=== PATIENT | male | born 1935 | race Caucasian/White ===

== ENCOUNTER 2018-08-24 14:05 | Inpatient (IN) | payer OTHER ==
[~2018-08-24] VITALS: Ht 167.6 cm; Wt 80.7 kg
[~2018-08-24 14:05] MED LIST: ATOR-2 PO; CLOP75TA27 PO; FURO40TA4 PO; PANT40TA4 PO; VALS40TA2 PO
[2018-08-24 14:09] VITALS: Ht 167.6 cm; Wt 80.7 kg
[2018-08-24] MEDS ORDERED: ACETAMINOPHEN 325 MG TAB PO ONE (15:00)
[2018-08-24] MEDS ORDERED: PIPER-TAZO 3.375 GM IV (PMX) 100 ML IVPB STA (15:20)
[2018-08-24] MEDS ORDERED: VANCOMYCIN 1 GM (PMX) 250 ML IVPB STA (15:20)
[2018-08-24] MEDS ORDERED: SACU1TAB7 PO (15:26)
[2018-08-24] MEDS ORDERED: CLOP75TA19 PO (15:27)
[2018-08-24] MEDS ORDERED: ATOR-2 PO (15:27)
[2018-08-24] MEDS ORDERED: ONDANSETRON 4 MG INJ IV PRN ×2 (16:00→18:00)
[2018-08-24] MEDS ORDERED: ACETAMINOPHEN 325 MG TAB PO PRN (16:00)
--- NOTE | 2018-08-24 16:36 | ERD ---
ER Documentation Chief Complaint Chief Complaint rt foot swelling s/p twisted today ROS All systems reviewed and are negative except as per history of present illness. Medications Home Meds Reported Medications Atorvastatin* (Atorvastatin*) 80 Mg Tablet, 80 MG PO QHS, #30 TAB 08/24/18 Clopidogrel Bisulfate* (Clopidogrel Bisulfate*) 75 Mg Tablet, 75 MG PO DAILY, #30 TAB 08/24/18 Sacubitril/Valsartan (Entresto 49 mg-51 mg Tablet) 1 Each Tablet, 1 EACH PO BID, TAB 08/24/18 Discontinued Reported Medications Clopidogrel Bisulfate (Clopidogrel) 75 Mg Tablet, 75 MG PO DAILY, #30 TAB 02/11/16 Furosemide* (Furosemide*) 40 Mg Tablet, 40 MG PO DAILY, TAB 02/11/16 Atorvastatin* (Atorvastatin*) 80 Mg Tablet, 80 MG PO QHS, #30 TAB 02/11/16 Pantoprazole* (Pantoprazole*) 40 Mg Tablet.dr, 40 MG PO AC BREAKFAST, TAB 02/11/16 Valsartan* (Diovan*) 40 Mg Tablet, 40 MG PO DAILY, TAB 02/11/16 Allergies Allergies: Coded Allergies: No Known Allergies (Verified Allergy, Unknown, 08/24/18) PMhx/Soc Anesthesia Reaction: No Hx Neurological Disorder: No Hx Respiratory Disorders: No Hx Cardiac Disorders: Yes (HTN< CAD, MA STEMI) Hx Psychiatric Problems: No Hx Miscellaneous Medical Probl: No Hx Alcohol Use: No Hx Substance Use: No Hx Tobacco Use: No Smoking Status: Never smoker Physical Exam Vitals Vital Signs Date Temp Pulse Resp B/P (MAP) Pulse Ox O2 O2 Flow FiO2 Time Delivery Rate 08/24/18 98.1 66 24 149/79 98 Room Air 15:10 (102) 08/24/18 98.1 79 18 136/79 98 14:09 (98) Physical Exam Const: No acute distress Head: Atraumatic Eyes: Normal Conjunctiva ENT: Normal External Ears, Nose and Mouth. Neck: Full range of motion. No meningismus. Resp: Clear to auscultation bilaterally Cardio: Regular rate and rhythm, no murmurs Abd: Soft, non tender, non distended. Normal bowel sounds Skin: Redness and warmth to touch to the dorsal right foot Back: No midline or flank tenderness Ext: No cyanosis, or edema Neur: Awake and alert Psych: Normal Mood and Affect Result Diagram: 08/24/18 1512 08/24/18 1512 Results 24 hrs Laboratory Tests Test 08/24/18 15:12 08/24/18 15:35 White Blood Count 8.5 10^3/ul Red Blood Count 4.82 10^6/ul Hemoglobin 13.1 g/dl Hematocrit 41.3 % Mean Corpuscular Volume 85.7 fl Mean Corpuscular Hemoglobin 27.2 pg Mean Corpuscular Hemoglobin Concent 31.7 g/dl Red Cell Distribution Width 14.1 % Platelet Count 201 10^3/UL Mean Platelet Volume 9.8 fl Immature Granulocytes % 0.400 % Neutrophils % 78.1 % Lymphocytes % 10.3 % Monocytes % 9.3 % Eosinophils % 1.3 % Basophils % 0.6 % Nucleated Red Blood Cells % 0.0 /100WBC Immature Granulocytes # 0.030 10^3/ul Neutrophils # 6.7 10^3/ul Lymphocytes # 0.9 10^3/ul Monocytes # 0.8 10^3/ul Eosinophils # 0.1 10^3/ul Basophils # 0.1 10^3/ul Nucleated Red Blood Cells # 0.0 10^3/ul Sodium Level 140 mmol/L Potassium Level 3.9 mmol/L Chloride Level 104 mmol/L Carbon Dioxide Level 27 mmol/L Anion Gap 9 Blood Urea Nitrogen 18 mg/dl Creatinine 1.05 mg/dl Est Glomerular Filtrat Rate mL/min mL/min Glucose Level 146 mg/dl Calcium Level 9.2 mg/dl Troponin I 0.015 ng/ml POC Venous Lactate 1.3 mmol/L Current Medications Medications Dose Sig/Kenneth Start Time Status Last (Trade) Ordered Route PRN Stop Time Admin Dose Reason Admin 650 mg ONCE ONCE 08/24/18 DC 08/24/18 Acetaminophen PO 15:00 14:53 (Tylenol 08/24/18 15:01 Tab) Vancomycin 250 ml @ ONCE STAT 08/24/18 08/24/18 HCl 125 mls/hr IVPB 15:20 16:10 08/24/18 17:19 Piperacillin 100 ml @ ONCE STAT 08/24/18 DC 08/24/18 Sod/ 200 mls/hr IVPB 15:20 15:42 Tazobactam 08/24/18 15:49 Sod Ondansetron 4 mg ER BRIDGE 08/24/18 HCl (Zofran PRN IV 16:00 Inj) NAUSEA/VOMITI 08/25/18 15:59 NG 650 mg ER BRIDGE 08/24/18 Acetaminophen PRN PO 16:00 (Tylenol .MILD PAIN 08/25/18 15:59 Tab) 1-3 OR TEMP Procedures/MDM EKG read by me: Rate/Rhythm: Irregular rhythm at a normal rate Intervals: Normal Impression: Likely Mobitz type II second-degree heart block Chest x-ray read by radiology. X-ray of the right foot shows no fracture per radiology. Patient is a 83-year-old male who presents with near syncope and falls. The patient was found to have what looks like a possible type II second-degree heart block. The patient will need to be watched on the monitor and possibly seen by cardiology to determine if he requires pacemaker placement. Right foot appears to be cellulitic with redness and warmth to touch to the dorsum. There is no sign of fracture. Patient was given broad-spectrum antibiotics after cultures and lactic acid. I doubt sepsis. The patient will be admitted to the panel team. Departure Diagnosis: Primary Impression: Mobitz type 2 second degree heart block Additional Impressions: Cellulitis Site of cellulitis: extremity Site of cellulitis of extremity: lower extremity Laterality: right Qualified Codes: L03.115 - Cellulitis of right lower limb Near syncope Dizziness Condition: Serious PAT LAMB MD Aug 24, 2018 16:36
[2018-08-24] MEDS ORDERED: NACL 0.9% 3 ML SYG IV SCH (18:00)
--- NOTE | 2018-08-24 18:18 | HP ---
Date/Time of Note Date/Time of Note DATE: 08/24/18 TIME: 18:05 Assessment/Plan VTE Prophylaxis Pharmacological prophylaxis: NA/contraindicated Pharm contraindication: low risk/ambulating Lines/Catheters IV Catheter Type (from Nrsg): Saline Lock Assessment/Plan Assessment/Plan 83 yo man history of VT and CABG, presents with foot redness found to have 2nd degree AV block #AV block - 2nd degree AV block on EKG and tele - Asymptomatic. Patient denies chest pain/pressure/palpitations. - Had fall but denies cardiac symptoms prior. - Consult Dr. Rowley #Foot redness - May be early soft tissue infection. - Foot XR unremarkable. - Empiric vancomycin, likely discharge on PO clinda or Bactrim. #CAD #History of CABG - Continue plavix, statin, Entresto - Will send lipid panel and HgbA1C DVT: SCDs GI: None Result Diagram: 08/24/18 1512 08/24/18 1512 HPI/ROS Admit Date/Time Admit Date/Time 24 August 2018 Hx of Present Illness Mr. Hopper is an 83 yo Um[place]-speaking man with history of CAD s/p CABG in 2016 who presents with foot swelling and fall. He was in his usual state of health until this morning when he fell; he was at the [employer] when he stood up, twisted his LEFT leg, and fell. Denies dizziness, chest pain/pressure/palpitations. He did not strike his head. He also this morning noticed RIGHT foot redness and swelling so came to the emergency room. In the ED he was afebrile, vitals unremarkable. Slightly hypertensive to 149/79. Labs also unremarkable with mildly elevated troponin to 0.015. EKG was concerning for type 2 AV block. ROS Denies weight loss, night sweats, anorexia, fever, chills, headache, vision changes, photophobia, dysphagia, nausea, vomiting, abdominal pain, palpitations, chest pain/pressure, diarrhea, constipation, hematochezia, melena, dysuria, hematuria. PMH/Family/Social Past Medical History History of VT CHF COPD Medications Current Medications Ondansetron HCl (Zofran Inj) 4 mg ER BRIDGE PRN IV NAUSEA/VOMITING; Start 08/24/18 at 16:00; Stop 08/25/18 at 15:59 Acetaminophen (Tylenol Tab) 650 mg ER BRIDGE PRN PO .MILD PAIN 1-3 OR TEMP; Start 08/24/18 at 16:00; Stop 08/25/18 at 15:59 IV Flush (NS 3 ml) 3 ml PER PROTOCOL IV ; Start 08/24/18 at 18:00; Status UNV Ondansetron HCl (Zofran Inj) 4 mg Q6H PRN IV NAUSEA/VOMITING; Start 08/24/18 at 18:00; Status UNV Acetaminophen (Tylenol Tab) 650 mg Q6H PRN PO .PAIN 1-3 OR TEMP; Start 08/24/18 at 18:00; Status UNV Heparin Sodium (Porcine) (Heparin (5000 Units/1ml)) 5,000 unit Q8 SC ; Start 08/24/18 at 22:00; Status UNV Atorvastatin Calcium (Lipitor) 80 mg QHS PO ; Start 08/24/18 at 21:00; Status UNV Clopidogrel Bisulfate (plaVIX) 75 mg DAILY PO ; Start 08/25/18 at 09:00; Status UNV Sacubitril/ Valsartan (Entresto 49 Mg-51 Mg) 1 tab BID PO ; Start 08/24/18 at 21:00; Status UNV Coded Allergies: No Known Allergies (Verified Allergy, Unknown, 08/24/18) Past Surgical History CABG in 09/[address] Mc after VT Past Surgical Hx: coronary bypass surgery Family History Significant Family History: no pertinent family hx Social History Alcohol Use: none Smoking Status: Never smoker Drug Use: none Exam/Review of Systems Vital Signs Vitals Vital Signs Date Temp Pulse Resp B/P (MAP) Pulse Ox O2 O2 Flow FiO2 Time Delivery Rate 08/24/18 98.5 53 24 154/75 97 Room Air 17:10 (101) Exam Exam Gen: Friendly, well developed man comfortable appearing supine in bed. Eyes: PERRL, mild icterus HEENT: Moist mucous membranes, clear oropharynx Neck: No JVD. Supple, no lymphadenopathy Card: Regular rate and rhythm, no murmurs. Chest: Well healed sternotomy scar. Pulm: Clear to auscultation bilaterally Abd: Soft, nontender, nondistended. Normoactive bowel sounds. Ext: R distal foot warm, 2+ edema, erythema. No induration or fluctuance. FLORENCIA BORREGO MD Aug 24, 2018 18:17
[2018-08-24] MEDS ORDERED: VANCOMYCIN IV PER PHARMACY XX SCH (18:30)
[2018-08-24 19:53] VITALS: BMI 28.7
[2018-08-24 20:00] VITALS: PULSE 45
[2018-08-24] MEDS ORDERED: VANCOMYCIN 500 MG (PMX) 100 ML IVPB ONE (21:00)
[2018-08-24] MEDS ORDERED: VANCOMYCIN HCL 1.25 GM in SOD CHLORIDE 0.9% 250 ML IVPB SCH (21:00)
[2018-08-24] MEDS: ATORVASTATIN 80 MG TAB PO SCH (21:16)
[2018-08-24] MEDS: HEPARIN 5,000 UNIT/1 ML VIAL SC SCH (21:28)
[2018-08-24] MEDS: SACUBITRIL/VALSARTAN (49mg-51mg) TABLET PO SCH (22:12)
[2018-08-25] VITALS (9 sets, daily range): BP systolic 128–149; BP diastolic 65–93; PULSE 56–73; RESP 18–20
[2018-08-25] MEDS: HEPARIN 5,000 UNIT/1 ML VIAL SC SCH ×3 (06:41→21:58)
[2018-08-25] MEDS: SACUBITRIL/VALSARTAN (49mg-51mg) TABLET PO SCH ×2 (08:46→20:32)
[2018-08-25] MEDS ORDERED: CLOPIDOGREL 75 MG TAB PO SCH (09:00)
[2018-08-25] MEDS: ALBUTEROL/IPRATROPIUM (NEB) 3 ML AMP HHN PRN (10:31)
--- NOTE | 2018-08-25 11:19 | CONS ---
Assessment/Plan Assessment/Plan Hospital Course (Demo Recall) RLE edema history of CMP and CHF most recent echo read as 30-40% Markedly abnormal conduction with RBBB, LAFB and marked 1st degree AV block [place] vs blocked PACs 1) mild heart failure will start Lasix 2) check echo may meet criteria for ICD 3) Continue telemetry monitoring for higher degree of heart block. Low threshold for pacemaker in setting of advanced conduction disease 4) hold plavix in case needs device to be followed 08/[address] Daley Consultation Date/Type/Reason Admit Date/Time 24 August 2018 Type of Consult Cardiology Date/Time of Note DATE: 08/25/18 TIME: 11:09 Hx of Present Illness 83 year old gentleman apparently lost to follow up but previously seen by Dr. Daley. Presents with RLE swelling denies chest pain or shortness of breath noted to be intermittently bradycardic. denies syncope or light headedness Constitutional: No chills, No disoriented Respiratory: no complaints Cardiovascular: no complaints Past Medical History Home Meds Reported Medications Atorvastatin* (Atorvastatin*) 80 Mg Tablet, 80 MG PO QHS, #30 TAB 08/24/18 Clopidogrel Bisulfate* (Clopidogrel Bisulfate*) 75 Mg Tablet, 75 MG PO DAILY, #30 TAB 08/24/18 Sacubitril/Valsartan (Entresto 49 mg-51 mg Tablet) 1 Each Tablet, 1 EACH PO BID, TAB 08/24/18 Discontinued Reported Medications Clopidogrel Bisulfate (Clopidogrel) 75 Mg Tablet, 75 MG PO DAILY, #30 TAB 02/11/16 Furosemide* (Furosemide*) 40 Mg Tablet, 40 MG PO DAILY, TAB 02/11/16 Atorvastatin* (Atorvastatin*) 80 Mg Tablet, 80 MG PO QHS, #30 TAB 02/11/16 Pantoprazole* (Pantoprazole*) 40 Mg Tablet., 40 MG PO AC BREAKFAST, TAB 02/11/16 Valsartan* (Diovan*) 40 Mg Tablet, 40 MG PO DAILY, TAB 02/11/16 Medications Current Medications IV Flush (NS 3 ml) 3 ml PER PROTOCOL IV ; Start 08/24/18 at 18:00 Ondansetron HCl (Zofran Inj) 4 mg Q6H PRN IV NAUSEA/VOMITING; Start 08/24/18 at 18:00 Acetaminophen (Tylenol Tab) 650 mg Q6H PRN PO .PAIN 1-3 OR TEMP; Start 08/24/18 at 18:00 Heparin Sodium (Porcine) (Heparin (5000 Units/1ml)) 5,000 unit Q8 SC Last administered on 08/25/18at 06:41; Admin Dose 5,000 UNIT; Start 08/24/18 at 22:00 Atorvastatin Calcium (Lipitor) 80 mg QHS PO Last administered on 08/24/18at 21:16; Admin Dose 80 MG; Start 08/24/18 at 21:00 Clopidogrel Bisulfate (plaVIX) 75 mg DAILY PO Last administered on 08/25/18at 08:46; Admin Dose 75 MG; Start 08/25/18 at 09:00 Sacubitril/ Valsartan (Entresto 49 Mg-51 Mg) 1 tab BID PO Last administered on 08/25/18at 08:46; Admin Dose 1 TAB; Start 08/24/18 at 21:00 Vancomycin HCl (Vanco Iv Per Pharmacy) VANCOMYCIN PER PHARMACY PER PROTOCOL XX ; Start 08/24/18 at 18:30 Vancomycin HCl 1.25 gm/Sodium Chloride 250 ml @ 83.333 mls/ hr Q24H IVPB ; Start 08/25/18 at 21:00 Albuterol/ Ipratropium (Duoneb) 3 ml Q4H RESP THERAPY PRN HHN SHORTNESS OF BREATH Last administered on 08/25/18at 10:31; Admin Dose 3 ML; Start 08/25/18 at 09:30 Allergies: Coded Allergies: No Known Allergies (Verified Allergy, Unknown, 08/24/18) Past Surgical History Past Surgical Hx: coronary bypass surgery Social History Alcohol Use: none Smoking Status: Never smoker Drug Use: none Exam/Review of Systems Vital Signs Vitals Vital Signs Date Temp Pulse Resp B/P (MAP) Pulse Ox O2 O2 Flow FiO2 Time Delivery Rate 08/25/18 2 2.0 10:32 08/25/18 68 22 Nasal 10:32 Cannula 08/25/18 97.9 130/73 07:18 (92) Intake and Output 08/24/18 08/24/18 08/25/18 1515:00 23:00 07:00 IntakeIntake Total 920 ml BalanceBalance 920 ml Exam Constitutional: alert, oriented Respiratory: diminished breath sounds Cardiovascular: irregular rhythm; No regular rate and rhythm Extremities: edema (right foot edema with mild erythema) Labs Result Diagram: 08/25/18 0444 08/25/18 0444 Results 24hrs Laboratory Tests Test 08/24/18 15:12 08/24/18 15:35 08/24/18 22:09 08/25/18 00:29 White Blood Count 8.5 Red Blood Count 4.82 Hemoglobin 13.1 L Hematocrit 41.3 #L Mean Corpuscular 85.7 Volume Mean Corpuscular 27.2 L Hemoglobin Mean Corpuscular 31.7 L Hemoglobin Concent Red Cell 14.1 Distribution Width Platelet Count 201 Mean Platelet Volume 9.8 Immature 0.400 Granulocytes % Neutrophils % 78.1 H Lymphocytes % 10.3 L Monocytes % 9.3 Eosinophils % 1.3 Basophils % 0.6 Nucleated Red Blood 0.0 Cells % Immature 0.030 Granulocytes # Neutrophils # 6.7 Lymphocytes # 0.9 Monocytes # 0.8 Eosinophils # 0.1 Basophils # 0.1 Nucleated Red Blood 0.0 Cells # Sodium Level 140 Potassium Level 3.9 Chloride Level 104 Carbon Dioxide Level 27 Anion Gap 9 Blood Urea Nitrogen 18 Creatinine 1.05 Est Glomerular Filtrat Rate mL/min Glucose Level 146 Calcium Level 9.2 Troponin I 0.015 0.024 POC Venous Lactate 1.3 Lactic Acid Level 1.0 0.8 Creatine Kinase 110 Creatine Kinase 1.8 Index Creatinine Kinase MB 2.02 (Mass) Test 08/25/18 04:44 White Blood Count 6.9 Red Blood Count 4.55 L Hemoglobin 12.4 L Hematocrit 39.4 L Mean Corpuscular 86.6 Volume Mean Corpuscular 27.3 L Hemoglobin Mean Corpuscular 31.5 L Hemoglobin Concent Red Cell 14.2 Distribution Width Platelet Count 202 Mean Platelet Volume 10.3 Immature 0.100 Granulocytes % Neutrophils % 67.8 Lymphocytes % 16.0 Monocytes % 10.9 Eosinophils % 4.2 Basophils % 1.0 Nucleated Red Blood 0.0 Cells % Immature 0.010 Granulocytes # Neutrophils # 4.7 Lymphocytes # 1.1 Monocytes # 0.8 Eosinophils # 0.3 Basophils # 0.1 Nucleated Red Blood 0.0 Cells # Sodium Level 139 Potassium Level 3.9 Chloride Level 107 Carbon Dioxide Level 27 Anion Gap 5 Blood Urea Nitrogen 18 Creatinine 1.06 Est Glomerular Filtrat Rate mL/min Glucose Level 129 Hemoglobin A1c 6.9 H Calcium Level 9.1 Phosphorus Level 4.7 Magnesium Level 2.3 Total Bilirubin 0.9 Direct Bilirubin 0.00 Indirect Bilirubin 0.9 Aspartate Amino 24 Transf (AST/SGOT) Alanine 26 Aminotransferase (AL T/SGPT) Alkaline Phosphatase 70 Creatine Kinase 99 Creatine Kinase 2.1 Index Creatinine Kinase MB 2.09 (Mass) Troponin I 0.015 Total Protein 6.7 Albumin 3.6 Globulin 3.10 Albumin/Globulin 1.16 Ratio Triglycerides Level 53 Cholesterol Level 99 L LDL Cholesterol, 48 Calculated HDL Cholesterol 40 Cholesterol/HDL 2.4 Ratio Thyroid Stimulating 3.250 Hormone (TSH) Medications Medications Current Medications IV Flush (NS 3 ml) 3 ml PER PROTOCOL IV ; Start 08/24/18 at 18:00 Ondansetron HCl (Zofran Inj) 4 mg Q6H PRN IV NAUSEA/VOMITING; Start 08/24/18 at 18:00 Acetaminophen (Tylenol Tab) 650 mg Q6H PRN PO .PAIN 1-3 OR TEMP; Start 08/24/18 at 18:00 Heparin Sodium (Porcine) (Heparin (5000 Units/1ml)) 5,000 unit Q8 SC Last administered on 08/25/18at 06:41; Admin Dose 5,000 UNIT; Start 08/24/18 at 22:00 Atorvastatin Calcium (Lipitor) 80 mg QHS PO Last administered on 08/24/18at 21:16; Admin Dose 80 MG; Start 08/24/18 at 21:00 Clopidogrel Bisulfate (plaVIX) 75 mg DAILY PO Last administered on 08/25/18at 08:46; Admin Dose 75 MG; Start 08/25/18 at 09:00 Sacubitril/ Valsartan (Entresto 49 Mg-51 Mg) 1 tab BID PO Last administered on 08/25/18at 08:46; Admin Dose 1 TAB; Start 08/24/18 at 21:00 Vancomycin HCl (Vanco Iv Per Pharmacy) VANCOMYCIN PER PHARMACY PER PROTOCOL XX ; Start 08/24/18 at 18:30 Vancomycin HCl 1.25 gm/Sodium Chloride 250 ml @ 83.333 mls/ hr Q24H IVPB ; Start 08/25/18 at 21:00 Albuterol/ Ipratropium (Duoneb) 3 ml Q4H RESP THERAPY PRN HHN SHORTNESS OF BREATH Last administered on 08/25/18at 10:31; Admin Dose 3 ML; Start 08/25/18 at 09:30 SOLOMON ARGUELLES MD Aug 25, 2018 11:19
[2018-08-25] MEDS: FUROSEMIDE 40 MG INJ IV SCH (12:37)
--- NOTE | 2018-08-25 14:11 | PN ---
Date/Time of Note Date/Time of Note DATE: 08/25/18 TIME: 14:08 Assessment/Plan VTE Prophylaxis Risk score (from Nsg)>0 risk: 3 SCD applied (from Nsg): Yes Pharmacological prophylaxis: heparin Lines/Catheters IV Catheter Type (from Nrsg): Saline Lock Assessment/Plan Hospital Course Comfortable no distress + JVD RRR Mild perihperal edema with statis changes A/P: 83 yo male with systolic CHF, CAD who presents with acute CHF exacerbation and trifascicular block CHF: - Continue diuresis to euvolemia Trifascucular block: - Management per cardiology, ICD? PPM? CAD: - Hold plavix for possible device implantation - Atorvastatin Vancomycin for foot cellulitis Result Diagram: 08/25/1844308/25/184 Results 24hrs Laboratory Tests Test 08/24/18 15:12 08/24/18 15:35 08/24/18 22:09 08/25/18 00:29 White Blood Count 8.5 Red Blood Count 4.82 Hemoglobin 13.1 L Hematocrit 41.3 #L Mean Corpuscular 85.7 Volume Mean Corpuscular 27.2 L Hemoglobin Mean Corpuscular 31.7 L Hemoglobin Concent Red Cell 14.1 Distribution Width Platelet Count 201 Mean Platelet Volume 9.8 Immature 0.400 Granulocytes % Neutrophils % 78.1 H Lymphocytes % 10.3 L Monocytes % 9.3 Eosinophils % 1.3 Basophils % 0.6 Nucleated Red Blood 0.0 Cells % Immature 0.030 Granulocytes # Neutrophils # 6.7 Lymphocytes # 0.9 Monocytes # 0.8 Eosinophils # 0.1 Basophils # 0.1 Nucleated Red Blood 0.0 Cells # Sodium Level 140 Potassium Level 3.9 Chloride Level 104 Carbon Dioxide Level 27 Anion Gap 9 Blood Urea Nitrogen 18 Creatinine 1.05 Est Glomerular Filtrat Rate mL/min Glucose Level 146 Calcium Level 9.2 Troponin I 0.015 0.024 POC Venous Lactate 1.3 Lactic Acid Level 1.0 0.8 Creatine Kinase 110 Creatine Kinase 1.8 Index Creatinine Kinase MB 2.02 (Mass) Test 08/25/18 04:44 White Blood Count 6.9 Red Blood Count 4.55 L Hemoglobin 12.4 L Hematocrit 39.4 L Mean Corpuscular 86.6 Volume Mean Corpuscular 27.3 L Hemoglobin Mean Corpuscular 31.5 L Hemoglobin Concent Red Cell 14.2 Distribution Width Platelet Count 202 Mean Platelet Volume 10.3 Immature 0.100 Granulocytes % Neutrophils % 67.8 Lymphocytes % 16.0 Monocytes % 10.9 Eosinophils % 4.2 Basophils % 1.0 Nucleated Red Blood 0.0 Cells % Immature 0.010 Granulocytes # Neutrophils # 4.7 Lymphocytes # 1.1 Monocytes # 0.8 Eosinophils # 0.3 Basophils # 0.1 Nucleated Red Blood 0.0 Cells # Sodium Level 139 Potassium Level 3.9 Chloride Level 107 Carbon Dioxide Level 27 Anion Gap 5 Blood Urea Nitrogen 18 Creatinine 1.06 Est Glomerular Filtrat Rate mL/min Glucose Level 129 Hemoglobin A1c 6.9 H Calcium Level 9.1 Phosphorus Level 4.7 Magnesium Level 2.3 Total Bilirubin 0.9 Direct Bilirubin 0.00 Indirect Bilirubin 0.9 Aspartate Amino 24 Transf (AST/SGOT) Alanine 26 Aminotransferase (AL T/SGPT) Alkaline Phosphatase 70 Creatine Kinase 99 Creatine Kinase 2.1 Index Creatinine Kinase MB 2.09 (Mass) Troponin I 0.015 Total Protein 6.7 Albumin 3.6 Globulin 3.10 Albumin/Globulin 1.16 Ratio Triglycerides Level 53 Cholesterol Level 99 L LDL Cholesterol, 48 Calculated HDL Cholesterol 40 Cholesterol/HDL 2.4 Ratio Thyroid Stimulating 3.250 Hormone (TSH) Subjective 24 Hr Interval Summary Free Text/Dictation Started on diuretics for CHF Resting comfortably Exam/Review of Systems Exam Vitals Vital Signs Date Temp Pulse Resp B/P (MAP) Pulse Ox O2 O2 Flow FiO2 Time Delivery Rate 08/25/18 62 12:01 08/25/18 97.8 20 135/71 97 Nasal 11:14 (92) Cannula 08/25/18 2.0 10:32 Intake and Output 08/24/18 08/24/18 08/25/18 1515:00 23:00 07:00 IntakeIntake Total 920 ml BalanceBalance 920 ml Results Results 24hrs Laboratory Tests Test 08/24/18 15:12 08/24/18 15:35 08/24/18 22:09 08/25/18 00:29 White Blood Count 8.5 Red Blood Count 4.82 Hemoglobin 13.1 L Hematocrit 41.3 #L Mean Corpuscular 85.7 Volume Mean Corpuscular 27.2 L Hemoglobin Mean Corpuscular 31.7 L Hemoglobin Concent Red Cell 14.1 Distribution Width Platelet Count 201 Mean Platelet Volume 9.8 Immature 0.400 Granulocytes % Neutrophils % 78.1 H Lymphocytes % 10.3 L Monocytes % 9.3 Eosinophils % 1.3 Basophils % 0.6 Nucleated Red Blood 0.0 Cells % Immature 0.030 Granulocytes # Neutrophils # 6.7 Lymphocytes # 0.9 Monocytes # 0.8 Eosinophils # 0.1 Basophils # 0.1 Nucleated Red Blood 0.0 Cells # Sodium Level 140 Potassium Level 3.9 Chloride Level 104 Carbon Dioxide Level 27 Anion Gap 9 Blood Urea Nitrogen 18 Creatinine 1.05 Est Glomerular Filtrat Rate mL/min Glucose Level 146 Calcium Level 9.2 Troponin I 0.015 0.024 POC Venous Lactate 1.3 Lactic Acid Level 1.0 0.8 Creatine Kinase 110 Creatine Kinase 1.8 Index Creatinine Kinase MB 2.02 (Mass) Test 08/25/18 04:44 White Blood Count 6.9 Red Blood Count 4.55 L Hemoglobin 12.4 L Hematocrit 39.4 L Mean Corpuscular 86.6 Volume Mean Corpuscular 27.3 L Hemoglobin Mean Corpuscular 31.5 L Hemoglobin Concent Red Cell 14.2 Distribution Width Platelet Count 202 Mean Platelet Volume 10.3 Immature 0.100 Granulocytes % Neutrophils % 67.8 Lymphocytes % 16.0 Monocytes % 10.9 Eosinophils % 4.2 Basophils % 1.0 Nucleated Red Blood 0.0 Cells % Immature 0.010 Granulocytes # Neutrophils # 4.7 Lymphocytes # 1.1 Monocytes # 0.8 Eosinophils # 0.3 Basophils # 0.1 Nucleated Red Blood 0.0 Cells # Sodium Level 139 Potassium Level 3.9 Chloride Level 107 Carbon Dioxide Level 27 Anion Gap 5 Blood Urea Nitrogen 18 Creatinine 1.06 Est Glomerular Filtrat Rate mL/min Glucose Level 129 Hemoglobin A1c 6.9 H Calcium Level 9.1 Phosphorus Level 4.7 Magnesium Level 2.3 Total Bilirubin 0.9 Direct Bilirubin 0.00 Indirect Bilirubin 0.9 Aspartate Amino 24 Transf (AST/SGOT) Alanine 26 Aminotransferase (AL T/SGPT) Alkaline Phosphatase 70 Creatine Kinase 99 Creatine Kinase 2.1 Index Creatinine Kinase MB 2.09 (Mass) Troponin I 0.015 Total Protein 6.7 Albumin 3.6 Globulin 3.10 Albumin/Globulin 1.16 Ratio Triglycerides Level 53 Cholesterol Level 99 L LDL Cholesterol, 48 Calculated HDL Cholesterol 40 Cholesterol/HDL 2.4 Ratio Thyroid Stimulating 3.250 Hormone (TSH) Medications Medication Current Medications IV Flush (NS 3 ml) 3 ml PER PROTOCOL IV ; Start 08/24/18 at 18:00 Ondansetron HCl (Zofran Inj) 4 mg Q6H PRN IV NAUSEA/VOMITING; Start 08/24/18 at 18:00 Acetaminophen (Tylenol Tab) 650 mg Q6H PRN PO .PAIN 1-3 OR TEMP; Start 08/24/18 at 18:00 Heparin Sodium (Porcine) (Heparin (5000 Units/1ml)) 5,000 unit Q8 SC Last administered on 08/25/18at 06:41; Admin Dose 5,000 UNIT; Start 08/24/18 at 22:00 Atorvastatin Calcium (Lipitor) 80 mg QHS PO Last administered on 08/24/18at 21:16; Admin Dose 80 MG; Start 08/24/18 at 21:00 Sacubitril/ Valsartan (Entresto 49 Mg-51 Mg) 1 tab BID PO Last administered on 08/25/18at 08:46; Admin Dose 1 TAB; Start 08/24/18 at 21:00 Vancomycin HCl (Vanco Iv Per Pharmacy) VANCOMYCIN PER PHARMACY PER PROTOCOL XX ; Start 08/24/18 at 18:30 Vancomycin HCl 1.25 gm/Sodium Chloride 250 ml @ 83.333 mls/ hr Q24H IVPB ; Start 08/25/18 at 21:00 Albuterol/ Ipratropium (Duoneb) 3 ml Q4H RESP THERAPY PRN HHN SHORTNESS OF BREATH Last administered on 08/25/18at 10:31; Admin Dose 3 ML; Start 08/25/18 at 09:30 Furosemide (Lasix) 40 mg DAILY IV Last administered on 08/25/18at 12:37; Admin Dose 40 MG; Start 08/25/18 at 11:30 SHERI BRO MD Aug 25, 2018 14:11
[2018-08-25] MEDS: ATORVASTATIN 80 MG TAB PO SCH (20:32)
[2018-08-25] MEDS: VANCOMYCIN HCL 1.25 GM in SOD CHLORIDE 0.9% 250 ML IVPB SCH (20:32)
[2018-08-26] VITALS (11 sets, daily range): BP systolic 14–161; BP diastolic 69–87; PULSE 55–88; RESP 18–20
[2018-08-26] MEDS: ACETAMINOPHEN 325 MG TAB PO PRN (03:13)
[2018-08-26] MEDS: HEPARIN 5,000 UNIT/1 ML VIAL SC SCH ×3 (06:39→21:32)
[2018-08-26] MEDS: SACUBITRIL/VALSARTAN (49mg-51mg) TABLET PO SCH ×2 (09:06→20:19)
[2018-08-26] MEDS: FUROSEMIDE 40 MG INJ IV SCH (09:06)
--- NOTE | 2018-08-26 15:34 | PN ---
Date/Time of Note Date/Time of Note DATE: 08/26/18 TIME: 15:30 Assessment/Plan VTE Prophylaxis Risk score (from Nsg)>0 risk: 5 Pharmacological prophylaxis: NA/contraindicated Pharm contraindication: low risk/ambulating Lines/Catheters IV Catheter Type (from Nrsg): Saline Lock Assessment/Plan Hospital Course 83 yo male with systolic CHF, CAD who presents with acute CHF exacerbation and trifascicular block CHF: - Continue diuresis to euvolemia Trifascucular block: - Management per cardiology, patient may require a pacemaker the patient is not currently interested in having that done CAD: - Hold plavix for possible device implantation - Atorvastatin Foot cellulitis -Continue Vanco Result Diagram: 08/25/1844308/25/18443 Subjective 24 Hr Interval Summary Constitutional: no complaints Exam/Review of Systems Exam Vitals Vital Signs Date Temp Pulse Resp B/P (MAP) Pulse Ox O2 O2 Flow FiO2 Time Delivery Rate 08/26/18 98.3 77 20 124/77 100 15:17 (93) 08/26/18 Nasal 2.0 07:51 Cannula Intake and Output 08/25/18 08/25/18 08/26/18 1515:00 23:00 07:00 IntakeIntake Total 1310 ml 1050 ml OutputOutput Total 1250 ml 750 ml BalanceBalance 60 ml 300 ml Constitutional: alert, oriented Respiratory: clear to auscultation Cardiovascular: regular rate and rhythm Gastrointestinal: soft; No distended Musculoskeletal: nl extremities to inspection Medications Medication Current Medications IV Flush (NS 3 ml) 3 ml PER PROTOCOL IV ; Start 08/24/18 at 18:00 Ondansetron HCl (Zofran Inj) 4 mg Q6H PRN IV NAUSEA/VOMITING; Start 08/24/18 at 18:00 Acetaminophen (Tylenol Tab) 650 mg Q6H PRN PO .PAIN 1-3 OR TEMP Last administered on 08/26/18at 03:13; Admin Dose 650 MG; Start 08/24/18 at 18:00 Heparin Sodium (Porcine) (Heparin (5000 Units/1ml)) 5,000 unit Q8 SC Last administered on 08/26/18at 13:57; Admin Dose 5,000 UNIT; Start 08/24/18 at 22:00 Atorvastatin Calcium (Lipitor) 80 mg QHS PO Last administered on 08/25/18 20:32; Admin Dose 80 MG; Start 08/24/18 at 21:00 Sacubitril/ Valsartan (Entresto 49 Mg-51 Mg) 1 tab BID PO Last administered on 08/26/18 09:06; Admin Dose 1 TAB; Start 08/24/18 at 21:00 Vancomycin HCl (Vanco Iv Per Pharmacy) VANCOMYCIN PER PHARMACY PER PROTOCOL XX ; Start 08/24/18 at 18:30 Vancomycin HCl 1.25 gm/Sodium Chloride 250 ml @ 83.333 mls/ hr Q24H IVPB Last administered on 08/25/18 20:32; Admin Dose 83.333 MLS/HR; Start 08/25/18 at 21:00 Albuterol/ Ipratropium (Duoneb) 3 ml Q4H RESP THERAPY PRN HHN SHORTNESS OF BREATH Last administered on 08/25/18at 10:31; Admin Dose 3 ML; Start 08/25/18 at 09:30 Furosemide (Lasix) 40 mg DAILY IV Last administered on 08/26/18 09:06; Admin Dose 40 MG; Start 08/25/18 at 11:30 PHOEBE ANSARI Aug 26, 2018 15:34
--- NOTE | 2018-08-26 15:52 | RADRPT ---
Echocardiogram Report Patient Name: DWIGHT JONESPatient ID: [id number] : 1935 (83y 4m)Study Date: 08/25/2018 1:18:20 PM Gender: MAccession #: [id number] Tech: Zander Pham [facility] Location: 60 Ref.Physician: SOLOMON ARGUELLES Height(Cm): BSA: Weight(Kg): Quality: AdequateOrder Physician: SOLOMON ARGUELLES Account #: Procedures: Echocardiographic Report: Transthoracic echocardiogram with complete 2D, M-Mode, and doppler examination. Indications: Cardiomyopathy. Measurements: 2D/M Mode Doppler Measurement Value Normal Range Measurement Value Normal Range LVIDd 2D 5.2 [ 4.2 - 5.8 ] cm AV Peak Jh 1.4 [ 100.0 - 170.0 ] cm/sec LVIDs 2D 4.6 [ 2.5 - 4.0 ] cm AV Peak PG 8.0 [ 2.0 - 9.0 ] mmHg LVPWd 2D 1.0 [ 0.6 - 1.0 ] cm LVOT Peak Jh 0.9 [ 70.0 - 110.0 ] cm/sec IVSd 2D 1.0 [ 0.6 - 1.0 ] cm LVOT Peak PG 3.0 [ 2.0 - 6.0 ] mmHg AoR Diam 2D 3.5 [ 2.6 - 3.4 ] cm TR Peak Jh 2.2 [ 100.0 - 280.0 ] cm/sec EDV 2D 127.0 [ 62.0 - 150.0 ] ml TR Peak PG 19.0 mmHg ESV 2D 96.3 [ 21.0 - 61.0 ] ml RVSP 29.0 [ 10.0 - 36.0 ] mmHg EF 2D 24.2 [ 52.0 - 72.0 ] percent RA Pressure 10.0 mmHg LA Dimen 2D 3.6 [ 3.0 - 4.0 ] cm Findings: Left Ventricle: Normal left ventricular cavity size. Normal left ventricular wall thickness. Ejection fraction is visually estimated at 35-40 %. Abnormal Diastolic Function. These segments of the LV are hypokinetic mid anterior segment, apical anterior segment, anteroseptum mid segment and apex. Right Ventricle: Normal right ventricular size. Normal right ventricular systolic function. Left Atrium: The left atrium is normal in size. Right Atrium: The right atrium is normal in size. Mitral Valve: Normal appearance and function of the mitral valve with trace physiologic regurgitation. Aortic Valve: No significant aortic stenosis or insufficiency. Aortic cusps appear mildly calcified. Tricuspid Valve: Normal appearance of the tricuspid valve. The estimated Peak RVSP is 29 mmHg. There is trace tricuspid regurgitation. Pulmonic Valve: Pulmonic valve not well visualized. Pericardium: Normal pericardium with no significant pericardial effusion. Aorta: Normal aortic root. IVC: Normal size and normal respiratory collapse consistent with normal right atrial pressure. Conclusions: Normal left ventricular cavity size. Normal left ventricular wall thickness. Ejection fraction is visually estimated at 35-40 %. Abnormal Diastolic Function. These segments of the LV are hypokinetic mid anterior segment, apical anterior segment, anteroseptum mid segment and apex. The left atrium is normal in size. Normal appearance and function of the mitral valve with trace physiologic regurgitation. No significant aortic stenosis or insufficiency. Aortic cusps appear mildly calcified. Normal appearance of the tricuspid valve. The estimated Peak RVSP is 29 mmHg. There is trace tricuspid regurgitation. Electronically Signed By: Abdirizak Daley 2018-08-26 15:52:12 PDT
--- NOTE | 2018-08-26 16:55 | CONS ---
Consult Date/Type/Reason Admit Date/Time Aug 24, 2018 at 15:55 Initial Consult Date Type of Consultation: CV Date/Time of Note DATE: 08/26/18 TIME: 16:48 Subjective cardiology follow up progress note s: Discussed with the staff and telemetry was reviewed. Patient has remained in sinus rhythm but has had Mobitz 1 AV block with episode of event 2-1 AV block heart rate has gone as low as 30s. No chest pain or pressure. Breathing is about the same. Objective: General: no acute distress HEENT: NC/AT. pupils are equal. round. NECK: NO JVD. no stridor. CV: Bradycardic. systolic murmur; no gallop or rubs. PULM: no wheezing or rhonchi. GI: SOFT, NT, ND, no rebound or guarding Extremity: 1+ right lower extremity edema as well as erythema. no clubbing. neuro: awake and alert, OX3. Psych: calm and pleasant rectal: deferred Echocardiogram was personally reviewed which shows: Normal left ventricular cavity size. Normal left ventricular wall thickness. Ejection fraction is visually estimated at 35-40 %. Abnormal Diastolic Function. These segments of the LV are hypokinetic mid anterior segment, apical anterior segment, anteroseptum mid segment and apex. The left atrium is normal in size. Normal appearance and function of the mitral valve with trace physiologic regurgitation. No significant aortic stenosis or insufficiency. Aortic cusps appear mildly calcified. Normal appearance of the tricuspid valve. The estimated Peak RVSP is 29 mmHg. There is trace tricuspid regurgitation. Objective Vitals Vital Signs Date Temp Pulse Resp B/P (MAP) Pulse Ox O2 O2 Flow FiO2 Time Delivery Rate 08/26/18 55 16:01 08/26/18 98.3 20 124/77 100 15:17 (93) 08/26/18 Nasal 2.0 07:51 Cannula Intake and Output 08/25/18 08/25/18 08/26/18 1515:00 23:00 07:00 IntakeIntake Total 1310 ml 1050 ml OutputOutput Total 1250 ml 750 ml BalanceBalance 60 ml 300 ml Results/Medications Result Diagram: 08/25/18 0444 08/25/18 0444 Home Meds Reported Medications Atorvastatin* (Atorvastatin*) 80 Mg Tablet, 80 MG PO QHS, #30 TAB 6/15/19 Clopidogrel Bisulfate* (Clopidogrel Bisulfate*) 75 Mg Tablet, 75 MG PO DAILY, #30 TAB 08/24/18 Sacubitril/Valsartan (Entresto 49 mg-51 mg Tablet) 1 Each Tablet, 1 EACH PO BID, TAB 08/24/18 Discontinued Reported Medications Clopidogrel Bisulfate (Clopidogrel) 75 Mg Tablet, 75 MG PO DAILY, #30 TAB 02/11/16 Furosemide* (Furosemide*) 40 Mg Tablet, 40 MG PO DAILY, TAB 02/11/16 Atorvastatin* (Atorvastatin*) 80 Mg Tablet, 80 MG PO QHS, #30 TAB 02/11/16 Pantoprazole* (Pantoprazole*) 40 Mg Tablet.dr, 40 MG PO AC BREAKFAST, TAB 02/11/16 Valsartan* (Diovan*) 40 Mg Tablet, 40 MG PO DAILY, TAB 02/11/16 Medications Current Medications IV Flush (NS 3 ml) 3 ml PER PROTOCOL IV ; Start 08/24/18 at 18:00 Ondansetron HCl (Zofran Inj) 4 mg Q6H PRN IV NAUSEA/VOMITING; Start 08/24/18 at 18:00 Acetaminophen (Tylenol Tab) 650 mg Q6H PRN PO .PAIN 1-3 OR TEMP Last administered on 08/26/18at 03:13; Admin Dose 650 MG; Start 08/24/18 at 18:00 Heparin Sodium (Porcine) (Heparin (5000 Units/1ml)) 5,000 unit Q8 SC Last administered on 08/26/18at 13:57; Admin Dose 5,000 UNIT; Start 08/24/18 at 22:00 Atorvastatin Calcium (Lipitor) 80 mg QHS PO Last administered on 08/25/18at 20:32; Admin Dose 80 MG; Start 08/24/18 at 21:00 Sacubitril/ Valsartan (Entresto 49 Mg-51 Mg) 1 tab BID PO Last administered on 08/26/18at 09:06; Admin Dose 1 TAB; Start 08/24/18 at 21:00 Vancomycin HCl (Vanco Iv Per Pharmacy) VANCOMYCIN PER PHARMACY PER PROTOCOL XX ; Start 08/24/18 at 18:30 Vancomycin HCl 1.25 gm/Sodium Chloride 250 ml @ 83.333 mls/ hr Q24H IVPB Last administered on 08/25/18at 20:32; Admin Dose 83.333 MLS/HR; Start 08/25/18 at 21:00 Albuterol/ Ipratropium (Duoneb) 3 ml Q4H RESP THERAPY PRN HHN SHORTNESS OF BREATH Last administered on 08/25/18at 10:31; Admin Dose 3 ML; Start 08/25/18 at 09:30 Furosemide (Lasix) 40 mg DAILY IV Last administered on 08/26/18at 09:06; Admin Dose 40 MG; Start 08/25/18 at 11:30 Assessment/Plan Hospital Course (Demo Recall) Congestive heart failure acute on chronic secondary systolic heart failure worsened by his marked bradycardia AV block with Mobitz 1 AV block and prolonged MS interval/first-degree AV block as well as intermittent 2-1 AV block Severe ischemic cardiomyopathy History of RI History of PCI history of coronary bypass graft Dyslipidemia Diabetes Abnormal EKG due to above Extremity edema possible gout rec: Continue with aspirin Continue with Entresto Unable to give any beta-bonilla at this point given his marked AV block and bradycardia Continue with statin Lasix to be continued as well We will check a chest x-ray and BNP I will start the patient on colchicine for possible gout. Antibiotic has been initiated by internal medicine. For possible cellulitis Patient has severe LV dysfunction ejection fraction has been between 30 to 35% mostly. He meets the ICD criteria for primary prevention of sudden cardiac d eath. He also has marked bradycardia and AV block and 2-1 AV block and would benefit from a pacing as well given the fact that he has been markedly bradycardic and which has been mostly contributing to his heart failure as well. He is also unable to get beta-bonilla given his severe LV dysfunction. Patient would best benefit from a by V ICD placement. d/w daughter who will talk with other family members Thank you for his referral we will continue to follow along with you. LAURA SWEET MD [facility] LAURA SWEET MD Aug 26, 2018 16:55
[2018-08-26] MEDS: COLCHICINE 0.6 MG TAB PO SCH (20:19)
[2018-08-26] MEDS: ATORVASTATIN 80 MG TAB PO SCH (20:19)
[2018-08-26] MEDS: VANCOMYCIN HCL 1.25 GM in SOD CHLORIDE 0.9% 250 ML IVPB SCH (20:19)
[2018-08-27] VITALS (11 sets, daily range): BP systolic 89–138; BP diastolic 54–97; PULSE 53–96; RESP 17–20
[2018-08-27] MEDS: ACETAMINOPHEN 325 MG TAB PO PRN (05:47)
[2018-08-27] MEDS: HEPARIN 5,000 UNIT/1 ML VIAL SC SCH ×3 (06:06→21:30)
[2018-08-27] MEDS: COLCHICINE 0.6 MG TAB PO SCH ×2 (08:21→20:24)
[2018-08-27] MEDS: FUROSEMIDE 40 MG INJ IV SCH (08:22)
[2018-08-27] MEDS: SACUBITRIL/VALSARTAN (49mg-51mg) TABLET PO SCH ×2 (08:22→20:24)
[2018-08-27] MEDS ORDERED: POTASSIUM CHLORIDE (SR) 20 MEQ TAB PO STA (08:35)
--- NOTE | 2018-08-27 08:38 | CONS ---
Consult Date/Type/Reason Admit Date/Time Aug 24, 2018 at 15:55 Initial Consult Date Type of Consultation: CV Date/Time of Note DATE: 08/27/18 TIME: 08:33 Subjective cardiology follow up progress note s: Discussed with the staff and telemetry was reviewed. Patient has remained in sinus rhythm but has had Mobitz 1 AV block No chest pain or pressure. Breathing is about the same. d/w family pt has agreed to BIV/ICD NOW less LE edema and pain Objective: General: no acute distress HEENT: NC/AT. pupils are equal. round. NECK: NO JVD. no stridor. CV: Bradycardic. systolic murmur; no gallop or rubs. PULM: no wheezing or rhonchi. GI: SOFT, NT, ND, no rebound or guarding Extremity: 1+ right lower extremity edema as well as erythema. no clubbing. neuro: awake and alert, OX3. Psych: calm and pleasant rectal: deferred Echocardiogram was personally reviewed which shows: Normal left ventricular cavity size. Normal left ventricular wall thickness. Ejection fraction is visually estimated at 35-40 %. Abnormal Diastolic Function. These segments of the LV are hypokinetic mid anterior segment, apical anterior segment, anteroseptum mid segment and apex. The left atrium is normal in size. Normal appearance and function of the mitral valve with trace physiologic regurgitation. No significant aortic stenosis or insufficiency. Aortic cusps appear mildly calcified. Normal appearance of the tricuspid valve. The estimated Peak RVSP is 29 mmHg. There is trace tricuspid regurgitation. Objective Vitals Vital Signs Date Temp Pulse Resp B/P (MAP) Pulse Ox O2 O2 Flow FiO2 Time Delivery Rate 08/27/18 76 08:08 08/27/18 Nasal 2.0 07:19 Cannula 08/27/18 97.6 20 109/59 97 07:07 (76) Intake and Output 08/26/18 08/26/18 08/27/18 1515:00 23:00 07:00 IntakeIntake Total 1150 ml 730 ml OutputOutput Total 950 ml 500 ml BalanceBalance 200 ml 230 ml Results/Medications Result Diagram: 08/27/18 0508/27/18 0522 Results 24 hrs Laboratory Tests Test 08/27/18 05:22 White Blood Count 7.7 Red Blood Count 5.07 Hemoglobin 13.7 L Hematocrit 43.2 Mean Corpuscular Volume 85.2 Mean Corpuscular Hemoglobin 27.0 L Mean Corpuscular Hemoglobin Concent 31.7 L Red Cell Distribution Width 14.0 Platelet Count 250 # Mean Platelet Volume 10.1 Immature Granulocytes % 0.400 Neutrophils % 68.0 Lymphocytes % 18.8 Monocytes % 8.6 Eosinophils % 3.4 Basophils % 0.8 Nucleated Red Blood Cells % 0.0 Immature Granulocytes # 0.030 Neutrophils # 5.2 Lymphocytes # 1.4 Monocytes # 0.7 Eosinophils # 0.3 Basophils # 0.1 Nucleated Red Blood Cells # 0.0 Prothrombin Time 14.1 Prothrombin Time Ratio 1.1 INR International Normalized Ratio 1.08 Sodium Level 138 Potassium Level 3.5 Chloride Level 102 Carbon Dioxide Level 27 Anion Gap 9 Blood Urea Nitrogen 28 H Creatinine 1.18 Est Glomerular Filtrat Rate mL/min Glucose Level 145 Calcium Level 9.0 Magnesium Level 2.3 Total Bilirubin 1.0 Direct Bilirubin 0.00 Indirect Bilirubin 1.0 Aspartate Amino Transf (AST/SGOT) 26 Alanine Aminotransferase (ALT/SGPT) 31 Alkaline Phosphatase 82 B-Type Natriuretic Peptide 1190 H Total Protein 7.0 Albumin 3.9 Globulin 3.10 Albumin/Globulin Ratio 1.25 Home Meds Reported Medications Atorvastatin* (Atorvastatin*) 80 Mg Tablet, 80 MG PO QHS, #30 TAB 08/24/18 Clopidogrel Bisulfate* (Clopidogrel Bisulfate*) 75 Mg Tablet, 75 MG PO DAILY, #30 TAB 08/24/18 Sacubitril/Valsartan (Entresto 49 mg-51 mg Tablet) 1 Each Tablet, 1 EACH PO BID, TAB 08/24/18 Discontinued Reported Medications Clopidogrel Bisulfate (Clopidogrel) 75 Mg Tablet, 75 MG PO DAILY, #30 TAB 02/11/16 Furosemide* (Furosemide*) 40 Mg Tablet, 40 MG PO DAILY, TAB 02/11/16 Atorvastatin* (Atorvastatin*) 80 Mg Tablet, 80 MG PO QHS, #30 TAB 02/11/16 Pantoprazole* (Pantoprazole*) 40 Mg Tablet.dr, 40 MG PO AC BREAKFAST, TAB 02/11/16 Valsartan* (Diovan*) 40 Mg Tablet, 40 MG PO DAILY, TAB 02/11/16 Medications Current Medications IV Flush (NS 3 ml) 3 ml PER PROTOCOL IV ; Start 08/24/18 at 18:00 Ondansetron HCl (Zofran Inj) 4 mg Q6H PRN IV NAUSEA/VOMITING; Start 08/24/18 at 18:00 Acetaminophen (Tylenol Tab) 650 mg Q6H PRN PO .PAIN 1-3 OR TEMP Last admini stered on 08/27/18at 05:47; Admin Dose 650 MG; Start 08/24/18 at 18:00 Heparin Sodium (Porcine) (Heparin (5000 Units/1ml)) 5,000 unit Q8 SC Last administered on 08/27/18 06:06; Admin Dose 5,000 UNIT; Start 08/24/18 at 22:00 Atorvastatin Calcium (Lipitor) 80 mg QHS PO Last administered on 08/26/18 20:19; Admin Dose 80 MG; Start 08/24/18 at 21:00 Sacubitril/ Valsartan (Entresto 49 Mg-51 Mg) 1 tab BID PO Last administered on 08/27/18 08:22; Admin Dose 1 TAB; Start 08/24/18 at 21:00 Vancomycin HCl (Vanco Iv Per Pharmacy) VANCOMYCIN PER PHARMACY PER PROTOCOL XX ; Start 08/24/18 at 18:30 Vancomycin HCl 1.25 gm/Sodium Chloride 250 ml @ 83.333 mls/ hr Q24H IVPB Last administered on 08/26/18 20:19; Admin Dose 83.333 MLS/HR; Start 08/25/18 at 21:00 Albuterol/ Ipratropium (Duoneb) 3 ml Q4H RESP THERAPY PRN HHN SHORTNESS OF BREATH Last administered on 08/25/18at 10:31; Admin Dose 3 ML; Start 08/25/18 at 09:30 Furosemide (Lasix) 40 mg DAILY IV Last administered on 08/27/18 08:22; Admin D ose 40 MG; Start 08/25/18 at 11:30 Colchicine (Colchicine) 0.6 mg BID PO Last administered on 08/27/18 08:21; Admin Dose 0.6 MG; Start 08/26/18 at 21:00 Miscellaneous Information (*Rx Drug Level Order Reminder*) VANCO TROUGH @ 2,000 ON... 1999 ONCE XX ; Start 08/27/18 at 20:00; Stop 08/27/18 at 20:01 Assessment/Plan Hospital Course (Demo Recall) Congestive heart failure acute on chronic secondary systolic heart failure worsened by his marked bradycardia AV block with Mobitz 1 AV block and prolonged AK interval/first-degree AV block as well as intermittent 2-1 AV block Severe ischemic cardiomyopathy History of MS History of PCI history of coronary bypass graft Dyslipidemia Diabetes Abnormal EKG due to above Extremity edema possible gout rec: Continue with aspirin Continue with Entresto Unable to give any beta-bonilla at this point given his marked AV block and bradycardia Continue with statin Lasix to be continued as well We will check a chest x-ray and BNP I will start the patient on colchicine for possible gout. Antibiotic has been initiated by internal medicine. For possible cellulitis Patient has severe LV dysfunction ejection fraction has been between 30 to 35% mostly. He meets the ICD criteria for primary prevention of sudden cardiac . He also has marked bradycardia and AV block and 2-1 AV block and would benefit from a pacing as well given the fact that he has been markedly bradycardic and which has been mostly contributing to his heart failure as well. He is also unable to get beta-bonilla given his severe LV dysfunction. Patient would best benefit from a by V ICD placement. d/w daughter pt has consented to the procedure now. Explained to the internal procedure discussed with the patient in detail including risk of infection vascular complication bleeding complication pneumothorax hemothorax MS arrhythmia etc. Patient consented to procedure. Patient has been scheduled for tomorrow morning unless the [employer] will not be ready Thank you for his referral we will continue to follow along with you. LAURA SWEET MD [facility] LAURA SWEET MD Aug 27, 2018 08:38
--- NOTE | 2018-08-27 16:53 | PN ---
Date/Time of Note Date/Time of Note DATE: 08/27/18 TIME: 16:49 Assessment/Plan VTE Prophylaxis Risk score (from Nsg)>0 risk: 5 Pharmacological prophylaxis: NA/contraindicated Pharm contraindication: surgical contra Lines/Catheters IV Catheter Type (from Nrsg): Saline Lock Assessment/Plan Hospital Course 83 yo male with systolic CHF, CAD who presents with acute CHF exacerbation and trifascicular block CHF: - Continue diuresis to euvolemia -Echo shows an EF of 35%, patient would benefit from ICD per cardiology Trifascucular block: - Management per cardiology, patient has an indication for pacemaker placement, plan is for placement today CAD: - Hold plavix for possible device implantation - Atorvastatin Gout -Uric acid is elevated -Continue colchicine -DC Vanco DC planning: Plan is for ICD/pacemaker placement today Result Diagram: 08/27/1852108/27/1822 Results 24hrs Laboratory Tests Test 08/27/18 05:22 White Blood Count 7.7 Red Blood Count 5.07 Hemoglobin 13.7 L Hematocrit 43.2 Mean Corpuscular Volume 85.2 Mean Corpuscular Hemoglobin 27.0 L Mean Corpuscular Hemoglobin Concent 31.7 L Red Cell Distribution Width 14.0 Platelet Count 250 # Mean Platelet Volume 10.1 Immature Granulocytes % 0.400 Neutrophils % 68.0 Lymphocytes % 18.8 Monocytes % 8.6 Eosinophils % 3.4 Basophils % 0.8 Nucleated Red Blood Cells % 0.0 Immature Granulocytes # 0.030 Neutrophils # 5.2 Lymphocytes # 1.4 Monocytes # 0.7 Eosinophils # 0.3 Basophils # 0.1 Nucleated Red Blood Cells # 0.0 Prothrombin Time 14.1 Prothrombin Time Ratio 1.1 INR International Normalized Ratio 1.08 Sodium Level 138 Potassium Level 3.5 Chloride Level 102 Carbon Dioxide Level 27 Anion Gap 9 Blood Urea Nitrogen 28 H Creatinine 1.18 Est Glomerular Filtrat Rate mL/min Glucose Level 145 Uric Acid 8.2 H Calcium Level 9.0 Magnesium Level 2.3 Total Bilirubin 1.0 Direct Bilirubin 0.00 Indirect Bilirubin 1.0 Aspartate Amino Transf (AST/SGOT) 26 Alanine Aminotransferase (ALT/SGPT) 31 Alkaline Phosphatase 82 B-Type Natriuretic Peptide 1190 H Total Protein 7.0 Albumin 3.9 Globulin 3.10 Albumin/Globulin Ratio 1.25 Subjective 24 Hr Interval Summary Constitutional: no complaints Exam/Review of Systems Exam Vitals Vital Signs Date Temp Pulse Resp B/P (MAP) Pulse Ox O2 O2 Flow FiO2 Time Delivery Rate 08/27/18 53 16:12 08/27/18 97.5 20 117/63 99 14:59 (81) 08/27/18 Nasal 2.0 07:19 Cannula Intake and Output 08/26/18 08/26/18 08/27/18 1515:00 23:00 07:00 IntakeIntake Total 1150 ml 730 ml OutputOutput Total 950 ml 500 ml BalanceBalance 200 ml 230 ml Constitutional: alert, oriented Respiratory: clear to auscultation Cardiovascular: regular rate and rhythm Gastrointestinal: soft; No distended Musculoskeletal: nl extremities to inspection Results Results 24hrs Laboratory Tests Test 08/27/18 05:22 White Blood Count 7.7 Red Blood Count 5.07 Hemoglobin 13.7 L Hematocrit 43.2 Mean Corpuscular Volume 85.2 Mean Corpuscular Hemoglobin 27.0 L Mean Corpuscular Hemoglobin Concent 31.7 L Red Cell Distribution Width 14.0 Platelet Count 250 # Mean Platelet Volume 10.1 Immature Granulocytes % 0.400 Neutrophils % 68.0 Lymphocytes % 18.8 Monocytes % 8.6 Eosinophils % 3.4 Basophils % 0.8 Nucleated Red Blood Cells % 0.0 Immature Granulocytes # 0.030 Neutrophils # 5.2 Lymphocytes # 1.4 Monocytes # 0.7 Eosinophils # 0.3 Basophils # 0.1 Nucleated Red Blood Cells # 0.0 Prothrombin Time 14.1 Prothrombin Time Ratio 1.1 INR International Normalized Ratio 1.08 Sodium Level 138 Potassium Level 3.5 Chloride Level 102 Carbon Dioxide Level 27 Anion Gap 9 Blood Urea Nitrogen 28 H Creatinine 1.18 Est Glomerular Filtrat Rate mL/min Glucose Level 145 Uric Acid 8.2 H Calcium Level 9.0 Magnesium Level 2.3 Total Bilirubin 1.0 Direct Bilirubin 0.00 Indirect Bilirubin 1.0 Aspartate Amino Transf (AST/SGOT) 26 Alanine Aminotransferase (ALT/SGPT) 31 Alkaline Phosphatase 82 B-Type Natriuretic Peptide 1190 H Total Protein 7.0 Albumin 3.9 Globulin 3.10 Albumin/Globulin Ratio 1.25 Medications Medication Current Medications IV Flush (NS 3 ml) 3 ml PER PROTOCOL IV ; Start 08/24/18 at 18:00 Ondansetron HCl (Zofran Inj) 4 mg Q6H PRN IV NAUSEA/VOMITING; Start 08/24/18 at 18:00 Acetaminophen (Tylenol Tab) 650 mg Q6H PRN PO .PAIN 1-3 OR TEMP Last administered on 08/27/18 05:47; Admin Dose 650 MG; Start 08/24/18 at 18:00 Heparin Sodium (Porcine) (Heparin (5000 Units/1ml)) 5,000 unit Q8 SC Last administered on 08/27/18 14:54; Admin Dose 5,000 UNIT; Start 08/24/18 at 22:00 Atorvastatin Calcium (Lipitor) 80 mg QHS PO Last administered on 08/26/18 20:19; Admin Dose 80 MG; Start 08/24/18 at 21:00 Sacubitril/ Valsartan (Entresto 49 Mg-51 Mg) 1 tab BID PO Last administered on 08/27/18 08:22; Admin Dose 1 TAB; Start 08/24/18 at 21:00 Vancomycin HCl (Vanco Iv Per Pharmacy) VANCOMYCIN PER PHARMACY PER PROTOCOL XX ; Start 08/24/18 at 18:30 Vancomycin HCl 1.25 gm/Sodium Chloride 250 ml @ 83.333 mls/ hr Q24H IVPB Last administered on 08/26/18 20:19; Admin Dose 83.333 MLS/HR; Start 08/25/18 at 21:00 Albuterol/ Ipratropium (Duoneb) 3 ml Q4H RESP THERAPY PRN HHN SHORTNESS OF BREATH Last administered on 08/25/18 10:31; Admin Dose 3 ML; Start 08/25/18 at 09:30 Furosemide (Lasix) 40 mg DAILY IV Last administered on 08/27/18 08:22; Admin Dose 40 MG; Start 08/25/18 at 11:30 Colchicine (Colchicine) 0.6 mg BID PO Last administered on 08/27/18 08:21; Admin Dose 0.6 MG; Start 08/26/18 at 21:00 Miscellaneous Information (*Rx Drug Level Order Reminder*) VANCO TROUGH @ 2,000 ON... 1999 ONCE XX ; Start 08/27/18 at 20:00; Stop 08/27/18 at 20:01 PHOEBE ANSARI Aug 27, 2018 16:53
[2018-08-27] MEDS: ATORVASTATIN 80 MG TAB PO SCH (20:24)
[2018-08-28] VITALS (14 sets, daily range): BP systolic 104–140; BP diastolic 69–93; PULSE 61–138; RESP 6–19
[2018-08-28] MEDS: HEPARIN 5,000 UNIT/1 ML VIAL SC SCH ×3 (05:14→20:12)
--- NOTE | 2018-08-28 06:39 | CONS ---
Consult Date/Type/Reason Admit Date/Time Aug 24, 2018 at 15:55 Initial Consult Date Type of Consultation: CV Date/Time of Note DATE: 08/28/18 TIME: 06:37 Subjective cardiology follow up progress note s: Discussed with the staff and telemetry was reviewed. Patient has remained in sinus rhythm but has had Mobitz 1 AV block and prolonged first degree AV block No chest pain or pressure. Breathing is about the same. d/w family pt has agreed to BIV/ICD NOW less LE edema and pain Objective: General: no acute distress HEENT: NC/AT. pupils are equal. round. NECK: NO JVD. no stridor. CV: Bradycardic. systolic murmur; no gallop or rubs. PULM: no wheezing or rhonchi. GI: SOFT, NT, ND, no rebound or guarding Extremity: trace lower extremity edema as well as erythema. no clubbing. neuro: awake and alert, OX3. Psych: calm and pleasant rectal: deferred Echocardiogram was personally reviewed which shows: Normal left ventricular cavity size. Normal left ventricular wall thickness. Ejection fraction is visually estimated at 35-40 %. Abnormal Diastolic Function. These segments of the LV are hypokinetic mid anterior segment, apical anterior segment, anteroseptum mid segment and apex. The left atrium is normal in size. Normal appearance and function of the mitral valve with trace physiologic regurgitation. No significant aortic stenosis or insufficiency. Aortic cusps appear mildly calcified. Normal appearance of the tricuspid valve. The estimated Peak RVSP is 29 mmHg. There is trace tricuspid regurgitation. Objective Vitals Vital Signs Date Temp Pulse Resp B/P (MAP) Pulse Ox O2 O2 Flow FiO2 Time Delivery Rate 08/28/18 2.0 05:46 08/28/18 97.6 81 19 104/69 98 04:00 (81) 08/27/18 Nasal 20:15 Cannula Intake and Output 08/27/18 08/27/18 08/28/18 1515:00 23:00 07:00 IntakeIntake Total 1150 ml 500 ml OutputOutput Total 950 ml BalanceBalance 200 ml 500 ml Results/Medications Result Diagram: 08/28/18 0545 08/27/18 0522 Results 24 hrs Laboratory Tests Test 08/28/18 05:45 White Blood Count 6.4 Red Blood Count 5.29 Hemoglobin 14.2 Hematocrit 45.4 Mean Corpuscular Volume 85.8 Mean Corpuscular Hemoglobin 26.8 L Mean Corpuscular Hemoglobin Concent 31.3 L Red Cell Distribution Width 14.2 Platelet Count 266 Mean Platelet Volume 9.9 Immature Granulocytes % 0.500 H Neutrophils % 58.3 Lymphocytes % 24.5 Monocytes % 10.9 Eosinophils % 4.5 Basophils % 1.3 Nucleated Red Blood Cells % 0.0 Immature Granulocytes # 0.030 Neutrophils # 3.7 Lymphocytes # 1.6 Monocytes # 0.7 Eosinophils # 0.3 Basophils # 0.1 Nucleated Red Blood Cells # 0.0 Home Meds Reported Medications Atorvastatin* (Atorvastatin*) 80 Mg Tablet, 80 MG PO QHS, #30 TAB 08/24/18 Clopidogrel Bisulfate* (Clopidogrel Bisulfate*) 75 Mg Tablet, 75 MG PO DAILY, #30 TAB 08/24/18 Sacubitril/Valsartan (Entresto 49 mg-51 mg Tablet) 1 Each Tablet, 1 EACH PO BID, TAB 08/24/18 Discontinued Reported Medications Clopidogrel Bisulfate (Clopidogrel) 75 Mg Tablet, 75 MG PO DAILY, #30 TAB 02/11/16 Furosemide* (Furosemide*) 40 Mg Tablet, 40 MG PO DAILY, TAB 02/11/16 Atorvastatin* (Atorvastatin*) 80 Mg Tablet, 80 MG PO QHS, #30 TAB 02/11/16 Pantoprazole* (Pantoprazole*) 40 Mg Tablet.dr, 40 MG PO AC BREAKFAST, TAB 02/11/16 Valsartan* (Diovan*) 40 Mg Tablet, 40 MG PO DAILY, TAB 02/11/16 Medications Current Medications IV Flush (NS 3 ml) 3 ml PER PROTOCOL IV ; Start 08/24/18 at 18:00 Ondansetron HCl (Zofran Inj) 4 mg Q6H PRN IV NAUSEA/VOMITING; Start 08/24/18 at 18:00 Acetaminophen (Tylenol Tab) 650 mg Q6H PRN PO .PAIN 1-3 OR TEMP Last administered on 08/27/18at 05:47; Admin Dose 650 MG; Start 08/24/18 at 18:00 Heparin Sodium (Porcine) (Heparin (5000 Units/1ml)) 5,000 unit Q8 SC Last administered on 08/27/18at 21:30; Admin Dose 5,000 UNIT; Start 08/24/18 at 22:00 Atorvastatin Calcium (Lipitor) 80 mg QHS PO Last administered on 08/27/18 20:24; Admin Dose 80 MG; Start 08/24/18 at 21:00 Sacubitril/ Valsartan (Entresto 49 Mg-51 Mg) 1 tab BID PO Last administered on 08/27/18 20:24; Admin Dose 1 TAB; Start 08/24/18 at 21:00 Albuterol/ Ipratropium (Duoneb) 3 ml Q4H RESP THERAPY PRN HHN SHORTNESS OF BREATH Last administered on 08/25/18 10:31; Admin Dose 3 ML; Start 08/25/18 at 09:30 Furosemide (Lasix) 40 mg DAILY IV Last administered on 08/27/18 08:22; Admin Dose 40 MG; Start 08/25/18 at 11:30 Colchicine (Colchicine) 0.6 mg BID PO Last administered on 08/27/18 20:24; Admin Dose 0.6 MG; Start 08/26/18 at 21:00 Sodium Chloride 500 ml @ 500 mls/hr Q1H ONCE IV ; Start 08/28/18 at 07:00; Stop 08/28/18 at 07:59; Status UNV Assessment/Plan Hospital Course (Demo Recall) Congestive heart failure 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 Antibiotic has been initiated by internal medicine. For possible cellulitis Patient has severe LV dysfunction ejection fraction has been between 30 to 35% mostly. He meets the ICD criteria for primary prevention of sudden cardiac . He also has marked bradycardia and AV block and 2-1 AV block and would benefit from a pacing as well given the fact that he has been markedly bradycardic and which has been mostly contributing to his heart failure as well. He is also unable to get beta-bonilla given his severe LV dysfunction. Patient would best benefit from a by V ICD placement. d/w daughter pt has consented to the procedure now. Explained to the internal procedure discussed with the patient in detail including risk of infection vascular complication bleeding complication pneumothorax hemothorax [place] arrhythmia etc. Patient consented to procedure. Patient has been scheduled for today Thank you for his referral we will continue to follow along with you. LAURA SWEET MD [facility] LAURA SWEET MD Aug 28, 2018 06:38
[2018-08-28] MEDS ORDERED: SOD CHLORIDE 0.9% 500 ML IV ONE (07:00)
--- NOTE | 2018-08-28 07:05 | PREAC ---
Date/Time of Note Date/Time of Note DATE: 08/28/18 TIME: 07:02 Anesthesia Eval and Record Evaluation Time Pre-Procedure Interview DATE: 08/28/18 TIME: 07:02 Age 83 Sex male NPO: 8 hrs Preoperative diagnosis Advanced heart block Planned procedure AICD placement Past Medical History Past Medical History: Includes Cardio: HTN, Dyslipidemia, [place], CAD, CABG, PTCA/Stent, CHF Pulm: COPD Surgery & Anesthesia Issues No known issue Meds Anticoagulation: No Beta Lon within 24 hr: No Reason Beta Lon not given: Pt. not on B-Lon Reported Medications Atorvastatin* (Atorvastatin*) 80 Mg Tablet, 80 MG PO QHS, #30 TAB 08/24/18 Clopidogrel Bisulfate* (Clopidogrel Bisulfate*) 75 Mg Tablet, 75 MG PO DAILY, #30 TAB 08/24/18 Sacubitril/Valsartan (Entresto 49 mg-51 mg Tablet) 1 Each Tablet, 1 EACH PO BID, TAB 08/24/18 Discontinued Reported Medications Clopidogrel Bisulfate (Clopidogrel) 75 Mg Tablet, 75 MG PO DAILY, #30 TAB 02/11/16 Furosemide* (Furosemide*) 40 Mg Tablet, 40 MG PO DAILY, TAB 02/11/16 Atorvastatin* (Atorvastatin*) 80 Mg Tablet, 80 MG PO QHS, #30 TAB 02/11/16 Pantoprazole* (Pantoprazole*) 40 Mg Tablet.dr, 40 MG PO AC BREAKFAST, TAB 02/11/16 Valsartan* (Diovan*) 40 Mg Tablet, 40 MG PO DAILY, TAB 02/11/16 Current Medications IV Flush (NS 3 ml) 3 ml PER PROTOCOL IV ; Start 08/24/18 at 18:00 Ondansetron HCl (Zofran Inj) 4 mg Q6H PRN IV NAUSEA/VOMITING; Start 08/24/18 at 18:00 Acetaminophen (Tylenol Tab) 650 mg Q6H PRN PO .PAIN 1-3 OR TEMP Last administered on 08/27/18at 05:47; Admin Dose 650 MG; Start 08/24/18 at 18:00 Heparin Sodium (Porcine) (Heparin (5000 Units/1ml)) 5,000 unit Q8 SC Last administered on 08/27/18at 21:30; Admin Dose 5,000 UNIT; Start 08/24/18 at 22:00 Atorvastatin Calcium (Lipitor) 80 mg QHS PO Last administered on 08/27/18 20:24; Admin Dose 80 MG; Start 08/24/18 at 21:00 Sacubitril/ Valsartan (Entresto 49 Mg-51 Mg) 1 tab BID PO Last administered on 08/27/18 20:24; Admin Dose 1 TAB; Start 08/24/18 at 21:00 Albuterol/ Ipratropium (Duoneb) 3 ml Q4H RESP THERAPY PRN HHN SHORTNESS OF BREATH Last administered on 08/25/18at 10:31; Admin Dose 3 ML; Start 08/25/18 at 09:30 Furosemide (Lasix) 40 mg DAILY IV Last administered on 08/27/18 08:22; Admin Dose 40 MG; Start 08/25/18 at 11:30 Colchicine (Colchicine) 0.6 mg BID PO Last administered on 08/27/18 20:24; Admin Dose 0.6 MG; Start 08/26/18 at 21:00 Sodium Chloride 500 ml @ 500 mls/hr Q1H ONCE IV Last administered on 08/28/18at 06:49; Admin Dose 500 MLS/HR; Start 08/28/18 at 07:00; Stop 08/28/18 at 07:59 Meds reviewed: Yes Allergies Coded Allergies: No Known Allergies (Verified Allergy, Unknown, 08/24/18) Allergies Reviewed: Yes Labs/Studies Labs Reviewed: Reviewed by anesthesiologist Result Diagram: 08/28/18 0545 08/28/18 0545 Laboratory Tests 08/28/18 05:45 test: N/A Pre-procedure Exam Last vitals Vital Signs Date Temp Pulse Resp B/P (MAP) Pulse Ox O2 O2 Flow FiO2 Time Delivery Rate 08/28/18 2.0 05:46 08/28/18 97.6 81 19 104/69 98 04:00 (81) 08/27/18 Nasal 20:15 Cannula Airway: Adequate mouth opening Mallampati: Mallampati I Teeth: Normal Lung: Normal Heart: Normal ASA Physical Status ASA physical status: 3 Emergency: None Planned Anesthetic General/MAC: MAC Planned Pain Management Parenteral pain med Pre-operative Attestations Prior to commencing anesthesia and surgery, the patient was re-evaluated, there was verification of: *The patient's identity *The results of appropriate recent lab work and preoperative vital signs *The above evaluation not changing prior to induction *Anesthetic plan, risk benefits, alternative and complications discussed with patient/family; questions answered; patient/family understands, accepts and wishes to proceed. SHERITA GRAHAM MD Aug 28, 2018 07:05
[2018-08-28] MEDS ORDERED: LIDOCAINE 1% (MDV) 20 ML INJ ONE (07:07)
[2018-08-28] MEDS ORDERED: SOD CHLORIDE 0.9% 500 ML ONE (07:07)
[2018-08-28] MEDS ORDERED: PROPOFOL 20 ML ONE (07:22)
[2018-08-28] MEDS ORDERED: MIDAZOLAM 1 MG/ML 2 ML INJ ONE ×2 (07:22→08:55)
[2018-08-28] MEDS ORDERED: FENTAnyl 50 MCG/ML VIAL ONE ×2 (07:22→08:54)
[2018-08-28] MEDS ORDERED: LIDOCAINE 1%/EPI 30 ML INJ INJ ONE (07:30)
[2018-08-28] MEDS ORDERED: POLYMYXIN/BACITRACIN 1L IRRIG IRR ONE (07:30)
[2018-08-28] MEDS ORDERED: CEFAZOLIN 2 GM/50 ML (PMX) 50 ML IVPB ONE (07:30)
[2018-08-28] MEDS ORDERED: IODIXANOL LOCM 50 ML BTL ONE ×2 (07:40→08:39)
--- NOTE | 2018-08-28 09:47 | OPR ---
Date/Time of Note Date/Time of Note DATE: 08/28/18 TIME: 09:41 Operative Report Procedure Date: Aug 28, 2018 Preoperative Diagnosis heart block .CHF. Postoperative Diagnosis same Operation/Procedure Performed BIVICD placement Surgeon see signature line Patient Account Specialist davide Anesthesia Type: other Estimated Blood Loss: minimal Transfusion none Specimen none Grafts/Implants none Complications none Procedure Description PROCEDURE PERFORMED: 1. Successful implantation of BIV/ ICD with placement of RV ( ICD) lead, RA lead and LV lead using an MRI compatible [place] device. 2. Defibrillator threshold testing (DFT testing). 3. coronary sinus venogram radiological interpretation Director Security Risk Management: Laura Daley MD Anesthesia: per anesthisiololgist INDICATION: Class III CHF. severe cardiomyopathy. ( pt meets MADIT II and SCD-H ef criteria for BIV/ ICD PLACEMENT . Patient also with symptomatic high degree AV block intermittent 2-1 AV block and very prolonged PA interval and marked bradycardia as low as 30 and dizziness. PROCEDURE IN DETAIL: Written informed consent was obtained after risks benefits and alternatives discussed with the patient and family in detail. Risks including but not limited to risk of infection, bleeding complications, anesthesia related complications, AL, CVA, perforation, pneumothorax hemothorax, etc discussed with pt in detail. Patient was brought into into the Barrel Lathe Operator Inside and placed in supine position. sedation was given. Right and left chest area was prepped and draped in regular sterile fashion. Left AC groove area was anesthetized using 1% lidocaine with epi. A 4 cm incision was made in the AC groove area. Blunt dissection was carried out. Cephalic vein was isolated. It was cannulated using a micropuncture needle and an BMW wire was advanced through into the inferior vena cava. Micropuncture sheath was placed over it. BMW wire was removed and a J-wire was advanced through it. Then the micropuncture sheath was removed and a 6 Welsh sheath was placed over into the cephalic vein. Then, another J-wire into the sheet. The sheath was removed again and a new sheath was placed over the wire into the cephalic vein. RV ICD lead was advanced under direct fluoroscopy and placed in the apex. Once a good position was found, threshold was checked which showed excellent threshold. It was screwed into place and threshold were checked again which showed good injury pattern and no diaphragmatic stimulation at 10 V an excellent thresholds. Then the sheath was peeled away. Another 6 Welsh sheath was placed over the second wire into the cephalic vein into the subclavian vein. Right atrial lead was advanced under direct fluoroscopy and placed into the right atrial appendage. Once a good position was found it was screwed into place. Thresholds were checked again which showed excellent injury pattern and no diaphragmatic assimilation at 10 V and good thresholds. Right atrial lead sheath was removed. Both leads were tied down using 0 Ethibond suture. Pocket was irrigated with antibiotic solution. The lead was checked again which showed good thresholds. Then leads were connected into the device. Then under direct flouroscopy, and use of micro puncture needle, left subclavian vein was cannulated and using a modified seldinger technique a 9.5 F sheath was placed into left subclavian vein. a figure of 8 was tied down around it. Then I used an inner and outer catheter and a therumu wire and was able to with difficulty engage into the coronary sinus. venogram of coronary sinus was done. then a 0.14 wire was advance into the lateral branch and LV lead advanced over the wire into the lateral branch of the coronary sinus. threshold was checked which was excellent. then sheaths were pilled away. LV lead was tied down using a 0 suture. Device was placed into the pocket and sutured using 0 Ethibond suture. At this point defibrillator threshold testing was performed. First external defibrillator was checked as 1 J. Then through the device patient was induced into V. fib using the method of shock on T. The device appropriately detected the V. fib and successfully cardioverted the patient back into sinus/paced rhythm at 18J. Pocket was irrigated again using antibiotic solution. Wound was closed with 1 layer of 2.0 Vicryl and 2 layers of 3.0 Vicryl. Steri- Strip was applied and pressure dressing was applied. Patient tolerated procedure well with no complication and was transferred to the recovery room in stable condition. Immediate complication: none Contrast used: 10 cc Please see physical chart for details regarding pacemaker information and thresholds. Conclusions: Successful implantation of dual-chamber ICD and defibrillator threshold testing. LAURA DALEY MD Aug 28, 2018 09:47
[2018-08-28] MEDS ORDERED: LABETALOL HCL 20MG INJ IV PRN (10:00)
[2018-08-28] MEDS ORDERED: morphine 2 MG INJ IV PRN (10:00)
[2018-08-28] MEDS ORDERED: EPHEDrine 25 MG/5 ML SYG IV PRN (10:00)
[2018-08-28] MEDS ORDERED: MEPERIDINE 25 MG INJ IV PRN (10:00)
[2018-08-28] MEDS ORDERED: OXYCODONE/ACETAMINOPHEN (5/325) TAB PO PRN ×2 (10:00)
[2018-08-28] MEDS ORDERED: DIPHENHYDRAMINE 50 MG INJ IV PRN (10:00)
[2018-08-28] MEDS ORDERED: ONDANSETRON 4 MG INJ IV PRN (10:00)
[2018-08-28] MEDS ORDERED: FENTAnyl 50 MCG/ML VIAL IV PRN ×3 (10:00)
[2018-08-28] MEDS ORDERED: MIDAZOLAM 1 MG/ML 2 ML INJ IV PRN (10:00)
[2018-08-28] MEDS ORDERED: METOCLOPRAMIDE 10 MG INJ IV PRN (10:00)
[2018-08-28] MEDS ORDERED: hydrALAzine 20 MG INJ IV PRN (10:00)
[2018-08-28] MEDS: COLCHICINE 0.6 MG TAB PO SCH ×2 (10:36→20:05)
[2018-08-28] MEDS: SACUBITRIL/VALSARTAN (49mg-51mg) TABLET PO SCH ×2 (10:37→20:05)
[2018-08-28] MEDS: FUROSEMIDE 40 MG INJ IV SCH (10:38)
--- NOTE | 2018-08-28 11:09 | PAC ---
Date/Time of Note Date/Time of Note DATE: 08/28/18 TIME: 11:09 Post-Anesthesia Notes Post-Anesthesia Note Last documented vital signs Vital Signs Date Temp Pulse Resp B/P (MAP) Pulse Ox O2 O2 Flow FiO2 Time Delivery Rate 08/28/18 Nasal 2.0 10:43 Cannula 08/28/18 93 10:35 08/28/18 16 140/93 98 10:27 (109) 08/28/18 98.9 10:08 Activity: WNL Respiratory function: WNL Cardiovascular function: WNL Mental status: Baseline Pain reasonably controlled: Yes Hydration appropriate: Yes Nausea/Vomiting absent: Yes Comments BT: 98.4 SHERITA GRAHAM MD Aug 28, 2018 11:09
[2018-08-28] MEDS: ALBUTEROL/IPRATROPIUM (NEB) 3 ML AMP HHN PRN (13:09)
[2018-08-28] MEDS: CEFAZOLIN 1 GM/50 ML (PMX) 50 ML IVPB SCH ×2 (14:17→21:07)
--- NOTE | 2018-08-28 14:34 | PN ---
Date/Time of Note Date/Time of Note DATE: 08/28/18 TIME: 14:32 Assessment/Plan VTE Prophylaxis Risk score (from Nsg)>0 risk: 5 Pharmacological prophylaxis: heparin Lines/Catheters IV Catheter Type (from Nrsg): Saline Lock Urinary Cath still in place: No Assessment/Plan Hospital Course 83 yo male with systolic CHF, CAD who presents with acute CHF exacerbation and trifascicular block CHF: - Continue diuresis to euvolemia -Echo shows an EF of 35%, status post BIVICD placement Trifascucular block: -Status post BIVICD placement CAD: -Resume Plavix upon DC - Atorvastatin Gout -Uric acid is elevated -Continue colchicine -DC Vanco Prophylaxis: Heparin DC planning: DC tomorrow Result Diagram: 08/28/1854408/28/18 0545 Results 24hrs Laboratory Tests Test 08/28/18 05:45 White Blood Count 6.4 Red Blood Count 5.29 Hemoglobin 14.2 Hematocrit 45.4 Mean Corpuscular Volume 85.8 Mean Corpuscular Hemoglobin 26.8 L Mean Corpuscular Hemoglobin Concent 31.3 L Red Cell Distribution Width 14.2 Platelet Count 266 Mean Platelet Volume 9.9 Immature Granulocytes % 0.500 H Neutrophils % 58.3 Lymphocytes % 24.5 Monocytes % 10.9 Eosinophils % 4.5 Basophils % 1.3 Nucleated Red Blood Cells % 0.0 Immature Granulocytes # 0.030 Neutrophils # 3.7 Lymphocytes # 1.6 Monocytes # 0.7 Eosinophils # 0.3 Basophils # 0.1 Nucleated Red Blood Cells # 0.0 Prothrombin Time 13.6 Prothrombin Time Ratio 1.1 INR International Normalized Ratio 1.03 Sodium Level 142 Potassium Level 4.4 Chloride Level 104 Carbon Dioxide Level 28 Anion Gap 10 Blood Urea Nitrogen 30 H Creatinine 1.16 Est Glomerular Filtrat Rate mL/min Glucose Level 137 Uric Acid 9.2 H Calcium Level 9.1 Magnesium Level 2.5 Total Bilirubin 0.8 Direct Bilirubin 0.00 Indirect Bilirubin 0.8 Aspartate Amino Transf (AST/SGOT) 40 # Alanine Aminotransferase (ALT/SGPT) 34 Alkaline Phosphatase 85 B-Type Natriuretic Peptide 774 H Total Protein 7.3 Albumin 3.9 Globulin 3.40 H Albumin/Globulin Ratio 1.14 Subjective 24 Hr Interval Summary Constitutional: no complaints Exam/Review of Systems Exam Vitals Vital Signs Date Temp Pulse Resp B/P (MAP) Pulse Ox O2 O2 Flow FiO2 Time Delivery Rate 08/28/18 72 20 96 Nasal 2.0 13:10 Cannula 08/28/18 98.7 125/84 11:51 (98) Intake and Output 08/27/18 08/27/18 08/28/18 1515:00 23:00 07:00 IntakeIntake Total 1150 ml 500 ml OutputOutput Total 950 ml BalanceBalance 200 ml 500 ml Constitutional: alert, oriented Respiratory: clear to auscultation Cardiovascular: regular rate and rhythm Gastrointestinal: soft; No distended Musculoskeletal: nl extremities to inspection Results Results 24hrs Laboratory Tests Test 08/28/18 05:45 White Blood Count 6.4 Red Blood Count 5.29 Hemoglobin 14.2 Hematocrit 45.4 Mean Corpuscular Volume 85.8 Mean Corpuscular Hemoglobin 26.8 L Mean Corpuscular Hemoglobin Concent 31.3 L Red Cell Distribution Width 14.2 Platelet Count 266 Mean Platelet Volume 9.9 Immature Granulocytes % 0.500 H Neutrophils % 58.3 Lymphocytes % 24.5 Monocytes % 10.9 Eosinophils % 4.5 Basophils % 1.3 Nucleated Red Blood Cells % 0.0 Immature Granulocytes # 0.030 Neutrophils # 3.7 Lymphocytes # 1.6 Monocytes # 0.7 Eosinophils # 0.3 Basophils # 0.1 Nucleated Red Blood Cells # 0.0 Prothrombin Time 13.6 Prothrombin Time Ratio 1.1 INR International Normalized Ratio 1.03 Sodium Level 142 Potassium Level 4.4 Chloride Level 104 Carbon Dioxide Level 28 Anion Gap 10 Blood Urea Nitrogen 30 H Creatinine 1.16 Est Glomerular Filtrat Rate mL/min Glucose Level 137 Uric Acid 9.2 H Calcium Level 9.1 Magnesium Level 2.5 Total Bilirubin 0.8 Direct Bilirubin 0.00 Indirect Bilirubin 0.8 Aspartate Amino Transf (AST/SGOT) 40 # Alanine Aminotransferase (ALT/SGPT) 34 Alkaline Phosphatase 85 B-Type Natriuretic Peptide 774 H Total Protein 7.3 Albumin 3.9 Globulin 3.40 H Albumin/Globulin Ratio 1.14 Medications Medication Current Medications IV Flush (NS 3 ml) 3 ml PER PROTOCOL IV ; Start 08/24/18 at 18:00 Ondansetron HCl (Zofran Inj) 4 mg Q6H PRN IV NAUSEA/VOMITING; Start 08/24/18 at 18:00 Acetaminophen (Tylenol Tab) 650 mg Q6H PRN PO .PAIN 1-3 OR TEMP Last administered on 08/27/18 05:47; Admin Dose 650 MG; Start 08/24/18 at 18:00 Heparin Sodium (Porcine) (Heparin (5000 Units/1ml)) 5,000 unit Q8 SC Last administered on 08/28/18 14:24; Admin Dose 5,000 UNIT; Start 08/24/18 at 22:00 Atorvastatin Calcium (Lipitor) 80 mg QHS PO Last administered on 08/27/18 20:24; Admin Dose 80 MG; Start 08/24/18 at 21:00 Sacubitril/ Valsartan (Entresto 49 Mg-51 Mg) 1 tab BID PO Last administered on 08/28/18 10:37; Admin Dose 1 TAB; Start 08/24/18 at 21:00 Albuterol/ Ipratropium (Duoneb) 3 ml Q4H RESP THERAPY PRN HHN SHORTNESS OF BREATH Last administered on 08/28/18 13:09; Admin Dose 3 ML; Start 08/25/18 at 09:30 Furosemide (Lasix) 40 mg DAILY IV Last administered on 08/28/18 10:38; Admin Dose 40 MG; Start 08/25/18 at 11:30 Colchicine (Colchicine) 0.6 mg BID PO Last administered on 08/28/18 10:36; Admin Dose 0.6 MG; Start 08/26/18 at 21:00 Morphine Sulfate (morphine) 1 mg Q1H PRN IV MODERATE TO SEVERE PAIN; Start 08/28/18 at 10:00 Cefazolin Sodium 50 ml @ 100 mls/hr Q8 IVPB Last administered on 08/28/18 14:17; Admin Dose 100 MLS/HR; Start 08/28/18 at 14:00; Stop 08/29/18 at 06:29 PHOEBE ANSARI Aug 28, 2018 14:34
[2018-08-28] MEDS: ATORVASTATIN 80 MG TAB PO SCH (20:05)
[2018-08-29] VITALS (11 sets, daily range): BP systolic 109–135; BP diastolic 71–84; PULSE 78–108; RESP 18–20
[2018-08-29] MEDS: CEFAZOLIN 1 GM/50 ML (PMX) 50 ML IVPB SCH (05:29)
--- NOTE | 2018-08-29 08:05 | CONS ---
Consult Date/Type/Reason Admit Date/Time Aug 24, 2018 at 15:55 Initial Consult Date Type of Consultation: CV Date/Time of Note DATE: 08/29/18 TIME: 07:56 Subjective cardiology follow up progress note s: Discussed with the staff and telemetry was reviewed. Patient has remained in v PACED since BIV./ICD C/O mild chest wall/ shoulder pain/ tenderness Breathing is ok now no LE edema and pain Objective: General: no acute distress HEENT: NC/AT. pupils are equal. round. NECK: NO JVD. no stridor. CV: Bradycardic. systolic murmur; no gallop or rubs. PULM: no wheezing or rhonchi. GI: SOFT, NT, ND, no rebound or guarding Extremity: trace lower extremity edema as well as erythema. no clubbing. neuro: awake and alert, OX3. Psych: calm and pleasant rectal: deferred CHEST S/ P BIV ICD. NO bleeding or hematoma Echocardiogram was personally reviewed which shows: Normal left ventricular cavity size. Normal left ventricular wall thickness. Ejection fraction is visually estimated at 35-40 %. Abnormal Diastolic Function. These segments of the LV are hypokinetic mid anterior segment, apical anterior segment, anteroseptum mid segment and apex. The left atrium is normal in size. Normal appearance and function of the mitral valve with trace physiologic regurgitation. No significant aortic stenosis or insufficiency. Aortic cusps appear mildly calcified. Normal appearance of the tricuspid valve. The estimated Peak RVSP is 29 mmHg. There is trace tricuspid regurgitation. Objective Vitals Vital Signs Date Temp Pulse Resp B/P (MAP) Pulse Ox O2 O2 Flow FiO2 Time Delivery Rate 08/29/18 2.0 04:14 08/29/18 108 04:00 08/29/18 97.5 18 135/83 99 Nasal 03:27 (100) Cannula Intake and Output 08/28/18 08/28/18 08/29/18 1515:00 23:00 07:00 IntakeIntake Total 850 ml 200 ml OutputOutput Total 400 ml 450 ml BalanceBalance 450 ml 200 ml -450 ml Results/Medications Result Diagram: 08/29/18 0454 08/29/18 0454 Results 24 hrs Laboratory Tests Test 08/29/18 04:54 White Blood Count 8.8 # Red Blood Count 5.23 Hemoglobin 14.2 Hematocrit 44.6 Mean Corpuscular Volume 85.3 Mean Corpuscular Hemoglobin 27.2 L Mean Corpuscular Hemoglobin Concent 31.8 L Red Cell Distribution Width 14.1 Platelet Count 226 Mean Platelet Volume 9.6 Immature Granulocytes % 0.600 H Neutrophils % 76.1 Lymphocytes % 11.2 L Monocytes % 9.4 Eosinophils % 2.0 Basophils % 0.7 Nucleated Red Blood Cells % 0.0 Immature Granulocytes # 0.050 H Neutrophils # 6.7 Lymphocytes # 1.0 Monocytes # 0.8 Eosinophils # 0.2 Basophils # 0.1 Nucleated Red Blood Cells # 0.0 Sodium Level 143 Potassium Level 3.7 Chloride Level 103 Carbon Dioxide Level 27 Anion Gap 13 Blood Urea Nitrogen 21 H Creatinine 0.95 Est Glomerular Filtrat Rate mL/min Glucose Level 148 Calcium Level 8.8 Magnesium Level 2.3 Total Bilirubin 0.6 Direct Bilirubin 0.00 Indirect Bilirubin 0.6 Aspartate Amino Transf (AST/SGOT) 44 Alanine Aminotransferase (ALT/SGPT) 33 Alkaline Phosphatase 92 B-Type Natriuretic Peptide 1320 H Total Protein 7.0 Albumin 3.8 Globulin 3.20 Albumin/Globulin Ratio 1.18 Home Meds Reported Medications Atorvastatin* (Atorvastatin*) 80 Mg Tablet, 80 MG PO QHS, #30 TAB 08/24/18 Clopidogrel Bisulfate* (Clopidogrel Bisulfate*) 75 Mg Tablet, 75 MG PO DAILY, #30 TAB 08/24/18 Sacubitril/Valsartan (Entresto 49 mg-51 mg Tablet) 1 Each Tablet, 1 EACH PO BID, TAB 08/24/18 Discontinued Reported Medications Clopidogrel Bisulfate (Clopidogrel) 75 Mg Tablet, 75 MG PO DAILY, #30 TAB 02/11/16 Furosemide* (Furosemide*) 40 Mg Tablet, 40 MG PO DAILY, TAB 02/11/16 Atorvastatin* (Atorvastatin*) 80 Mg Tablet, 80 MG PO QHS, #30 TAB 02/11/16 Pantoprazole* (Pantoprazole*) 40 Mg Tablet.dr, 40 MG PO AC BREAKFAST, TAB 02/11/16 Valsartan* (Diovan*) 40 Mg Tablet, 40 MG PO DAILY, TAB 02/11/16 Medications Current Medications IV Flush (NS 3 ml) 3 ml PER PROTOCOL IV ; Start 08/24/18 at 18:00 Ondansetron HCl (Zofran Inj) 4 mg Q6H PRN IV NAUSEA/VOMITING; Start 08/24/18 at 18:00 Acetaminophen (Tylenol Tab) 650 mg Q6H PRN PO .PAIN 1-3 OR TEMP Last administ ered on 08/27/18at 05:47; Admin Dose 650 MG; Start 08/24/18 at 18:00 Atorvastatin Calcium (Lipitor) 80 mg QHS PO Last administered on 08/28/18 20:05; Admin Dose 80 MG; Start 08/24/18 at 21:00 Sacubitril/ Valsartan (Entresto 49 Mg-51 Mg) 1 tab BID PO Last administered on 08/28/18 20:05; Admin Dose 1 TAB; Start 08/24/18 at 21:00 Albuterol/ Ipratropium (Duoneb) 3 ml Q4H RESP THERAPY PRN HHN SHORTNESS OF BREATH Last administered on 08/28/18 13:09; Admin Dose 3 ML; Start 08/25/18 at 09:30 Furosemide (Lasix) 40 mg DAILY IV Last administered on 08/28/18at 10:38; Admin Dose 40 MG; Start 08/25/18 at 11:30 Colchicine (Colchicine) 0.6 mg BID PO Last administered on 08/28/18 20:05; Admin Dose 0.6 MG; Start 08/26/18 at 21:00 Morphine Sulfate (morphine) 1 mg Q1H PRN IV MODERATE TO SEVERE PAIN; Start 08/28/18 at 10:00 Heparin Sodium (Porcine) (Heparin (5000 Units/1ml)) 5,000 unit Q12 SC Last administered on 08/28/18 20:12; Admin Dose 5,000 UNIT; Start 08/28/18 at 21:00 Metoprolol Succinate (Toprol Xl) 25 mg DAILY PO ; Start 08/29/18 at 09:00 Digoxin (Digoxin) 0.125 mg 1300 PO ; Start 08/29/18 at 13:00 Assessment/Plan Hospital Course (Demo Recall) Congestive heart failure 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 Antibiotic has been initiated by internal medicine. For possible cellulitis. will defer to IM WILL START allopurinolol By V ICD was interrogated and personally reviewed today which showed normal functioning BIV ICD. DC planning as per IM Patient needs to follow-up with me in about 2 weeks for ICD check and follow-up Thank you for his referral we will continue to follow along with you. LAURA SWEET MD [facility] LAURA SWEET MD Aug 29, 2018 08:05
[2018-08-29] MEDS: SACUBITRIL/VALSARTAN (49mg-51mg) TABLET PO SCH ×2 (08:31→20:34)
[2018-08-29] MEDS: COLCHICINE 0.6 MG TAB PO SCH ×2 (08:31→20:33)
[2018-08-29] MEDS: ALLOPURINOL 300 MG TAB PO SCH (08:31)
[2018-08-29] MEDS: METOPROLOL (XL) 25 MG TAB PO SCH (08:32)
[2018-08-29] MEDS: FUROSEMIDE 40 MG INJ IV SCH (08:32)
[2018-08-29] MEDS: HEPARIN 5,000 UNIT/1 ML VIAL SC SCH ×2 (08:41→21:07)
[2018-08-29] MEDS ORDERED: FURO40TA4 PO (10:16)
[2018-08-29] MEDS ORDERED: ALLO100T PO (10:16)
[2018-08-29] MEDS ORDERED: METO-335 PO (10:16)
[2018-08-29] MEDS ORDERED: DIGO125T PO (10:16)
[2018-08-29] MEDS ORDERED: COLC0.6T6 PO (10:16)
--- NOTE | 2018-08-29 10:17 | PDOCDIS ---
Discharge Instructions CONDITION [id number] Patient Condition: [id number] Good HOME CARE INSTRUCTIONS: [id number] Diet Instructions: [id number] Regular ACTIVITY: [id number] Activity Restrictions: [id number] Slowly Increase Activity Avoid heavy lifting (X 4 WEEKS) FOLLOW UP/APPOINTMENTS Follow-up Plan FOLLOW UP WITH YOUR PCP AND DR SWEET OF CARDIOLOGY IN 1-2 WEEKS PHOEBE ANSARI Aug 29, 2018 10:17
[2018-08-29] MEDS ORDERED: DIGOXIN 0.125 MG TAB PO SCH (13:00)
--- NOTE | 2018-08-29 14:12 | PN ---
Date/Time of Note Date/Time of Note DATE: 08/29/18 TIME: 14:11 Assessment/Plan VTE Prophylaxis Risk score (from Nsg)>0 risk: 4 Pharmacological prophylaxis: heparin Lines/Catheters IV Catheter Type (from Nrsg): Saline Lock Urinary Cath still in place: No Assessment/Plan Hospital Course 83 yo male with systolic CHF, CAD who presents with acute CHF exacerbation and trifascicular block CHF: - Continue diuresis to euvolemia -Echo shows an EF of 35%, status post BIVICD placement Trifascucular block: -Status post BIVICD placement CAD: -Resume Plavix upon DC - Atorvastatin Gout -Uric acid is elevated -Continue colchicine and allopurinol -DC Vanco Prophylaxis: Heparin DC planning: Patient still with pain at surgical site and has requested another day, DC tomorrow Result Diagram: 08/29/18 0454 08/29/18 0454 Results 24hrs Laboratory Tests Test 08/29/18 04:54 White Blood Count 8.8 # Red Blood Count 5.23 Hemoglobin 14.2 Hematocrit 44.6 Mean Corpuscular Volume 85.3 Mean Corpuscular Hemoglobin 27.2 L Mean Corpuscular Hemoglobin Concent 31.8 L Red Cell Distribution Width 14.1 Platelet Count 226 Mean Platelet Volume 9.6 Immature Granulocytes % 0.600 H Neutrophils % 76.1 Lymphocytes % 11.2 L Monocytes % 9.4 Eosinophils % 2.0 Basophils % 0.7 Nucleated Red Blood Cells % 0.0 Immature Granulocytes # 0.050 H Neutrophils # 6.7 Lymphocytes # 1.0 Monocytes # 0.8 Eosinophils # 0.2 Basophils # 0.1 Nucleated Red Blood Cells # 0.0 Sodium Level 143 Potassium Level 3.7 Chloride Level 103 Carbon Dioxide Level 27 Anion Gap 13 Blood Urea Nitrogen 21 H Creatinine 0.95 Est Glomerular Filtrat Rate mL/min Glucose Level 148 Calcium Level 8.8 Magnesium Level 2.3 Total Bilirubin 0.6 Direct Bilirubin 0.00 Indirect Bilirubin 0.6 Aspartate Amino Transf (AST/SGOT) 44 Alanine Aminotransferase (ALT/SGPT) 33 Alkaline Phosphatase 92 B-Type Natriuretic Peptide 1320 H Total Protein 7.0 Albumin 3.8 Globulin 3.20 Albumin/Globulin Ratio 1.18 Subjective 24 Hr Interval Summary Musculoskeletal: bone/joint pain Exam/Review of Systems Exam Vitals Vital Signs Date Temp Pulse Resp B/P (MAP) Pulse Ox O2 O2 Flow FiO2 Time Delivery Rate 08/29/18 107 12:07 08/29/18 97.6 20 131/84 96 Room Air 11:45 (100) 08/29/18 2.0 08:00 Intake and Output 08/28/18 08/28/18 08/29/18 1515:00 23:00 07:00 IntakeIntake Total 850 ml 200 ml OutputOutput Total 400 ml 450 ml BalanceBalance 450 ml 200 ml -450 ml Constitutional: alert, oriented Respiratory: clear to auscultation Cardiovascular: regular rate and rhythm Gastrointestinal: soft; No distended Musculoskeletal: nl extremities to inspection Results Results 24hrs Laboratory Tests Test 08/29/18 04:54 White Blood Count 8.8 # Red Blood Count 5.23 Hemoglobin 14.2 Hematocrit 44.6 Mean Corpuscular Volume 85.3 Mean Corpuscular Hemoglobin 27.2 L Mean Corpuscular Hemoglobin Concent 31.8 L Red Cell Distribution Width 14.1 Platelet Count 226 Mean Platelet Volume 9.6 Immature Granulocytes % 0.600 H Neutrophils % 76.1 Lymphocytes % 11.2 L Monocytes % 9.4 Eosinophils % 2.0 Basophils % 0.7 Nucleated Red Blood Cells % 0.0 Immature Granulocytes # 0.050 H Neutrophils # 6.7 Lymphocytes # 1.0 Monocytes # 0.8 Eosinophils # 0.2 Basophils # 0.1 Nucleated Red Blood Cells # 0.0 Sodium Level 143 Potassium Level 3.7 Chloride Level 103 Carbon Dioxide Level 27 Anion Gap 13 Blood Urea Nitrogen 21 H Creatinine 0.95 Est Glomerular Filtrat Rate mL/min Glucose Level 148 Calcium Level 8.8 Magnesium Level 2.3 Total Bilirubin 0.6 Direct Bilirubin 0.00 Indirect Bilirubin 0.6 Aspartate Amino Transf (AST/SGOT) 44 Alanine Aminotransferase (ALT/SGPT) 33 Alkaline Phosphatase 92 B-Type Natriuretic Peptide 1320 H Total Protein 7.0 Albumin 3.8 Globulin 3.20 Albumin/Globulin Ratio 1.18 Medications Medication Current Medications IV Flush (NS 3 ml) 3 ml PER PROTOCOL IV ; Start 08/24/18 at 18:00 Ondansetron HCl (Zofran Inj) 4 mg Q6H PRN IV NAUSEA/VOMITING; Start 08/24/18 at 18:00 Acetaminophen (Tylenol Tab) 650 mg Q6H PRN PO .PAIN 1-3 OR TEMP Last administered on 08/27/18 05:47; Admin Dose 650 MG; Start 08/24/18 at 18:00 Atorvastatin Calcium (Lipitor) 80 mg QHS PO Last administered on 08/28/18 20:05; Admin Dose 80 MG; Start 08/24/18 at 21:00 Sacubitril/ Valsartan (Entresto 49 Mg-51 Mg) 1 tab BID PO Last administered on 08/29/18 08:31; Admin Dose 1 TAB; Start 08/24/18 at 21:00 Albuterol/ Ipratropium (Duoneb) 3 ml Q4H RESP THERAPY PRN HHN SHORTNESS OF BREATH Last administered on 08/28/18 13:09; Admin Dose 3 ML; Start 08/25/18 at 09:30 Furosemide (Lasix) 40 mg DAILY IV Last administered on 08/29/18 08:32; Admin Dose 40 MG; Start 08/25/18 at 11:30 Colchicine (Colchicine) 0.6 mg BID PO Last administered on 08/29/18 08:31; Admin Dose 0.6 MG; Start 08/26/18 at 21:00 Morphine Sulfate (morphine) 1 mg Q1H PRN IV MODERATE TO SEVERE PAIN; Start 08/28/18 at 10:00 Heparin Sodium (Porcine) (Heparin (5000 Units/1ml)) 5,000 unit Q12 SC Last administered on 08/29/18 08:41; Admin Dose 5,000 UNIT; Start 08/28/18 at 21:00 Metoprolol Succinate (Toprol Xl) 25 mg DAILY PO Last administered on 08/29/18 08:32; Admin Dose 25 MG; Start 08/29/18 at 09:00 Digoxin (Digoxin) 0.125 mg 1300 PO Last administered on 08/29/18 12:56; Admin Dose 0.125 MG; Start 08/29/18 at 13:00 Allopurinol (Zyloprim) 300 mg DAILY PO Last administered on 08/29/18 08:31; Admin Dose 300 MG; Start 08/29/18 at 09:00 PHOEBE ANSARI Aug 29, 2018 14:12
[2018-08-29] MEDS: ATORVASTATIN 80 MG TAB PO SCH (20:33)
[2018-08-30] VITALS: PULSE 95
[2018-08-30 04:00] VITALS: BP 122/85; PULSE 82; PULSE 87; RESP 20
[2018-08-30 07:22] VITALS: BP 107/79; PULSE 103; RESP 18
--- NOTE | 2018-08-30 07:34 | RADRPT ---
Vent Rate: 103 bpm RR Interval: 584 msec MN Interval: 139 msec QRS Duration: 122 msec QT Interval: 379 msec QTC Interval: 496 msec P-R-T [place]: 253 - -85 - 84 degrees Ventricular-paced rhythm Biventricular paced rhythm...non-simultaneous bi-vent pacing Electronically Signed By: Jcarlos Stoll
--- NOTE | 2018-08-30 07:42 | RADRPT ---
Vent Rate: 93 bpm RR Interval: 647 msec MA Interval: 138 msec QRS Duration: 126 msec QT Interval: 402 msec QTC Interval: 500 msec P-R-T [place]: 232 - 257 - 87 degrees Ventricular-paced rhythm Biventricular paced rhythm...non-simultaneous bi-vent pacing Electronically Signed By: Jcarlos Stoll
--- NOTE | 2018-08-30 07:43 | CONS ---
Consult Date/Type/Reason Admit Date/Time Aug 24, 2018 at 15:55 Initial Consult Date Type of Consultation: CV Date/Time of Note DATE: 08/30/18 TIME: 07:41 Subjective cardiology follow up progress note S: Discussed with the staff and telemetry was reviewed. Patient has remained in v PACED since BIV./ICD C/O mild chest wall/ shoulder pain/ tenderness Breathing is ok now no LE edema and pain D/W daughter Objective: General: no acute distress HEENT: NC/AT. pupils are equal. round. NECK: NO JVD. no stridor. CV: Bradycardic. systolic murmur; no gallop or rubs. PULM: no wheezing or rhonchi. GI: SOFT, NT, ND, no rebound or guarding Extremity: trace lower extremity edema as well as erythema. no clubbing. neuro: awake and alert, OX3. Psych: calm and pleasant rectal: deferred CHEST S/ P BIV ICD. NO bleeding or hematoma Echocardiogram was personally reviewed which shows: Normal left ventricular cavity size. Normal left ventricular wall thickness. Ejection fraction is visually estimated at 35-40 %. Abnormal Diastolic Function. These segments of the LV are hypokinetic mid anterior segment, apical anterior segment, anteroseptum mid segment and apex. The left atrium is normal in size. Normal appearance and function of the mitral valve with trace physiologic regurgitation. No significant aortic stenosis or insufficiency. Aortic cusps appear mildly calcified. Normal appearance of the tricuspid valve. The estimated Peak RVSP is 29 mmHg. There is trace tricuspid regurgitation. Objective Vitals Vital Signs Date Temp Pulse Resp B/P (MAP) Pulse Ox O2 O2 Flow FiO2 Time Delivery Rate 08/30/18 98.3 103 18 107/79 94 07:22 (88) 08/29/18 Room Air 20:00 08/29/18 21 18:04 08/29/18 2.0 08:00 Intake and Output 08/29/18 08/29/18 08/30/18 1515:00 23:00 07:00 IntakeIntake Total 350 ml 250 ml OutputOutput Total 150 ml 300 ml 950 ml BalanceBalance 200 ml -50 ml -950 ml Results/Medications Result Diagram: 08/29/18 0454 08/29/18 0454 Home Meds Active Scripts Colchicine* (Colcrys*) 0.6 Mg Tablet, 0.6 MG PO BID, #60 TAB Prov:PHOEBE ANSARI 08/29/18 Furosemide* (Furosemide*) 40 Mg Tablet, 40 MG PO DAILY, #60 TAB Prov:PHOEBE ANSARI 08/29/18 Allopurinol* (Allopurinol*) 100 Mg Tablet, 100 MG PO DAILY, #60 TAB Prov:PHOEBE ANSARI 08/29/18 Metoprolol Succinate* (Toprol XL*) 25 Mg Tab.sr.24h, 25 MG PO DAILY, #60 TAB Prov:PHOEBE ANSARI 08/29/18 Digoxin* (Digitek*) 125 Mcg Tablet, 0.125 MG PO 1300, #60 TAB Prov:PHOEBE ANSARI 08/29/18 Reported Medications Atorvastatin* (Atorvastatin*) 80 Mg Tablet, 80 MG PO QHS, #30 TAB 08/24/18 Clopidogrel Bisulfate* (Clopidogrel Bisulfate*) 75 Mg Tablet, 75 MG PO DAILY, #30 TAB 08/24/18 Sacubitril/Valsartan (Entresto 49 mg-51 mg Tablet) 1 Each Tablet, 1 EACH PO BID, TAB 08/24/18 Discontinued Reported Medications Clopidogrel Bisulfate (Clopidogrel) 75 Mg Tablet, 75 MG PO DAILY, #30 TAB 02/11/16 Furosemide* (Furosemide*) 40 Mg Tablet, 40 MG PO DAILY, TAB 02/11/16 Atorvastatin* (Atorvastatin*) 80 Mg Tablet, 80 MG PO QHS, #30 TAB 02/11/16 Pantoprazole* (Pantoprazole*) 40 Mg Tablet.dr, 40 MG PO AC BREAKFAST, TAB 02/11/16 Valsartan* (Diovan*) 40 Mg Tablet, 40 MG PO DAILY, TAB 02/11/16 Medications Current Medications IV Flush (NS 3 ml) 3 ml PER PROTOCOL IV ; Start 08/24/18 at 18:00 Ondansetron HCl (Zofran Inj) 4 mg Q6H PRN IV NAUSEA/VOMITING; Start 08/24/18 at 18:00 Acetaminophen (Tylenol Tab) 650 mg Q6H PRN PO .PAIN 1-3 OR TEMP Last adminis tered on 08/27/18at 05:47; Admin Dose 650 MG; Start 08/24/18 at 18:00 Atorvastatin Calcium (Lipitor) 80 mg QHS PO Last administered on 6/20/19at 20:33; Admin Dose 80 MG; Start 08/24/18 at 21:00 Sacubitril/ Valsartan (Entresto 49 Mg-51 Mg) 1 tab BID PO Last administered on 08/29/18 20:34; Admin Dose 1 TAB; Start 08/24/18 at 21:00 Albuterol/ Ipratropium (Duoneb) 3 ml Q4H RESP THERAPY PRN HHN SHORTNESS OF BREATH Last administered on 08/28/18 13:09; Admin Dose 3 ML; Start 08/25/18 at 09:30 Furosemide (Lasix) 40 mg DAILY IV Last administered on 08/29/18 08:32; Admin Dose 40 MG; Start 08/25/18 at 11:30 Colchicine (Colchicine) 0.6 mg BID PO Last administered on 08/29/18 20:33; Admin Dose 0.6 MG; Start 08/26/18 at 21:00 Morphine Sulfate (morphine) 1 mg Q1H PRN IV MODERATE TO SEVERE PAIN; Start 08/28/18 at 10:00 Heparin Sodium (Porcine) (Heparin (5000 Units/1ml)) 5,000 unit Q12 SC Last administered on 08/29/18 21:07; Admin Dose 5,000 UNIT; Start 08/28/18 at 21:00 Metoprolol Succinate (Toprol Xl) 25 mg DAILY PO Last administered on 08/29/18 08:32; Admin Dose 25 MG; Start 08/29/18 at 09:00 Digoxin (Digoxin) 0.125 mg 1300 PO Last administered on 08/29/18 12:56; Admin Dose 0.125 MG; Start 08/29/18 at 13:00 Allopurinol (Zyloprim) 300 mg DAILY PO Last administered on 08/29/18 08:31; Admin Dose 300 MG; Start 08/29/18 at 09:00 Assessment/Plan Hospital Course (Demo Recall) Congestive heart failure 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 Antibiotic has been initiated by internal medicine. For possible cellulitis. will defer to IM cont allopurinolol DC planning as per IM Patient needs to follow-up with me in about 2 weeks for ICD check and follow-up Thank you for his referral we LAURA SWEET MD [facility] LAURA SWEET MD Aug 30, 2018 07:43
[2018-08-30] MEDS: ALLOPURINOL 300 MG TAB PO SCH (08:19)
[2018-08-30] MEDS: COLCHICINE 0.6 MG TAB PO SCH (08:19)
[2018-08-30] MEDS: SACUBITRIL/VALSARTAN (49mg-51mg) TABLET PO SCH (08:20)
[2018-08-30] MEDS: METOPROLOL (XL) 25 MG TAB PO SCH (08:22)
[2018-08-30] MEDS: FUROSEMIDE 40 MG INJ IV SCH (08:22)
[2018-08-30 08:25] VITALS: PULSE 103
[2018-08-30] MEDS: HEPARIN 5,000 UNIT/1 ML VIAL SC SCH (08:28)
[2018-08-30] MEDS ORDERED: POTASSIUM CHLORIDE (SR) 20 MEQ TAB PO STA (08:49)
--- NOTE | 2018-08-30 14:48 | DS ---
Date/Time of Note Date/Time of Note DATE: 08/30/18 TIME: 14:44 Discharge Summary Admission/Discharge Info Admit Date/Time Aug 24, 2018 at 15:55 Discharge Date/Time Aug 30, 2018 at 14:01 Discharge Diagnosis 83 yo male with systolic CHF, CAD who presents with acute CHF exacerbation and trifascicular block CHF: -Status post diuresis in house, DC with Lasix and metoprolol -Echo shows an EF of 35%, status post BIVICD placement Trifascucular block: -Status post BIVICD placement CAD: -Resume Plavix upon DC - Atorvastatin Gout -Uric acid is elevated -Continue colchicine and allopurinol -DC Vanco Prophylaxis: Heparin DC planning: Patient still with pain at surgical site and has requested another day, DC tomorrow Patient Condition: Good Hospital Course Patient is an 83 yo male with systolic CHF, CAD who presents with acute CHF exacerbation and trifascicular block. Patient was diuresed seen by cardiology, recommendation was for BIVICD which was placed. Patient appears to have a new diagnosis of gout with elevated uric acid levels and was started on colchicine and allopurinol. Patient was stable for DC per cardiology, the day of discharge patient vitals, labs and physical exam are stable. Home Meds Active Scripts Colchicine* (Colcrys*) 0.6 Mg Tablet, 0.6 MG PO BID, #60 TAB Prov:PHOEBE ANSARI 08/29/18 Furosemide* (Furosemide*) 40 Mg Tablet, 40 MG PO DAILY, #60 TAB Prov:PHOEBE ANSARI 08/29/18 Allopurinol* (Allopurinol*) 100 Mg Tablet, 100 MG PO DAILY, #60 TAB Prov:PHOEBE ANSARI 08/29/18 Metoprolol Succinate* (Toprol XL*) 25 Mg Tab.sr.24h, 25 MG PO DAILY, #60 TAB Prov:PHOEBE ANSARI 08/29/18 Digoxin* (Digitek*) 125 Mcg Tablet, 0.125 MG PO 1300, #60 TAB Prov:PHOEBE ANSARI 08/29/18 Reported Medications Atorvastatin* (Atorvastatin*) 80 Mg Tablet, 80 MG PO QHS, #30 TAB 08/24/18 Clopidogrel Bisulfate* (Clopidogrel Bisulfate*) 75 Mg Tablet, 75 MG PO DAILY, #30 TAB 08/24/18 Sacubitril/Valsartan (Entresto 49 mg-51 mg Tablet) 1 Each Tablet, 1 EACH PO BID, TAB 08/24/18 Discontinued Reported Medications Clopidogrel Bisulfate (Clopidogrel) 75 Mg Tablet, 75 MG PO DAILY, #30 TAB 02/11/16 Furosemide* (Furosemide*) 40 Mg Tablet, 40 MG PO DAILY, TAB 02/11/16 Atorvastatin* (Atorvastatin*) 80 Mg Tablet, 80 MG PO QHS, #30 TAB 02/11/16 Pantoprazole* (Pantoprazole*) 40 Mg Tablet., 40 MG PO AC BREAKFAST, TAB 02/11/16 Valsartan* (Diovan*) 40 Mg Tablet, 40 MG PO DAILY, TAB 16 Follow-up Plan FOLLOW UP WITH YOUR PCP AND DR SWEET OF CARDIOLOGY IN 1-2 WEEKS Primary Care Provider Not On Staff Doctor Time spent on discharge: > 30 minutes PHOEBE ANSARI Aug 30, 2018 14:48
== END 2018-08-30 14:01 | disposition home or self-care (01) | DRG 226 ==
LOC: FTE 14:05 → 6WM 15:55 → SUATTDRO 16:02
PROVIDERS: ADMIT Internal Medicine; ATTEND Internal Medicine
PROC: 02HL3KZ Insertion of Defibrillator Lead into Left Ventricle, Percutaneous Approach (ICD-10-PCS; 2018-08-28)
PROC: 02HK3KZ Insertion of Defibrillator Lead into Right Ventricle, Percutaneous Approach (ICD-10-PCS; 2018-08-28)
PROC: 02H63KZ Insertion of Defibrillator Lead into Right Atrium, Percutaneous Approach (ICD-10-PCS; 2018-08-28)
PROC: 0JH609Z Insertion of Cardiac Resynchronization Defibrillator Pulse Generator into Chest Subcutaneous Tissue and Fascia, Open Approach (ICD-10-PCS; principal; 2018-08-28 07:30)
DX: I45.3 Trifascicular block (principal); I50.23 Acute on chronic systolic (congestive) heart failure; L03.115 Cellulitis of right lower limb; I11.0 Hypertensive heart disease with heart failure; I25.10 Atherosclerotic heart disease of native coronary artery without angina pectoris; E78.5 Hyperlipidemia, unspecified; I25.5 Ischemic cardiomyopathy; J44.9 Chronic obstructive pulmonary disease, unspecified; M10.9 Gout, unspecified; I25.2 Old myocardial infarction; Z95.1 Presence of aortocoronary bypass graft; Z95.5 Presence of coronary angioplasty implant and graft; Z91.81 History of falling; Z79.02 Long term (current) use of antithrombotics/antiplatelets
CPT/HCPCS: 33249; 36415; 71045; 73630; 80048; 80053; 80061; 82550; 82553; 83036; 83605; 83735; 83880; 84100; 84443; 84484; 84560; 85025; 85610; 93005; 93306; 94640; 94664; 96374; 97116; 97161; 97530; J0690; J1644; J1940; J2250; J2543; J3010; J3370; J7040; J7050; Q9967